=== PATIENT | female | born 1930 | race Caucasian/White ===

== ENCOUNTER → 2017-03-11 | Outpatient (CLI) | payer OTHER, BC ==
[~2017-03-11] MED LIST: AMLO10TA2 PO; ASPI81TA28 PO; ATOR-24 PO; DTRSR4 PO; FENO145T26 PO; IMDSR60 PO; ISOS60TA25 PO; LEVO25TA5 PO; LISI-725 PO; METO50TA16 PO; METO50TA17 PO; NTRGSL/4 UT; PANT40TA PO; VALS40TA2 PO
[2017-03-11 17:37] LABS: BASO % 0.2 %; BASO ABS # 0.01 K/uL (0-0.2); COMPLETE YES; EOS % 4.5 %; IG% 0.2 %; LYMPH % 28.4 %; LYMPH ABS # 1.72 K/uL (1.2-3.4); MEAN CELL VOLUME 88.9 fL (80-100); MEAN CORPUSCULAR HEMOGLOBIN 29.1 pg (25-34); MEAN CORPUSCULAR HGB CONC 32.8 g/dl (32-36); MEAN PLATELET VOLUME 10.4 fL (7.4-10.4); MONO % 7.8 %; NEUT % 58.9 %; PLATELET COUNT 244 K/uL (130-400); RED BLOOD COUNT 4.05 M/uL (4.2-5.4); WHITE BLOOD COUNT 6.05 K/uL (4.8-10.8)
[2017-03-11 17:50] LABS: ALT/SGPT 22 U/L (12-78); BLOOD UREA NITROGEN 27 mg/dl (7-18); BUN/CREATININE RATIO 27.2 (10-20); CARBON DIOXIDE 23 mmol/L (21-32); CHLORIDE 115 mmol/L (98-107); CHOLESTEROL 114 mg/dl (0-200); GLUCOSE 103 mg/dl (70-99); SODIUM 145 mmol/L (136-145)
[2017-03-11 18:00] LABS: ALB/GLOB RATIO 1.2 (0.9-2); ALKALINE PHOSPHATASE 53 U/L (45-117); AST/SGOT 24 U/L (15-37); CHOLESTEROL/HDL RATIO 2.9; HDL CHOLESTEROL 39 mg/dl; LDL CHOLESTEROL CALCULATED 44 mg/dl; TRIGLYCERIDES 154 mg/dl (0-150); VERY LOW DENSITY LIPOPROT CALC 31 mg/dl
[2017-03-12 06:20] LABS: ESTIMATED AVERAGE GLUCOSE 123 mg/dl; HA1C FLAG Normal (Normal)
== END | disposition home or self-care (01) ==
LOC: C.LABBFT 15:12
PROVIDERS: ATTEND Physician Assistant Medical
DX: E03.9 Hypothyroidism, unspecified (principal); R73.01 Impaired fasting glucose

== ENCOUNTER → 2017-04-01 | Outpatient (CLI) | payer OTHER, BC ==
--- NOTE | 2017-04-01 13:14 | DIAGNOSTIC IMAGING REPORT ---
VIDEO SWALLOW HISTORY: Dysphagia DYSPHAGIA TECHNIQUE: Video fluoroscopic evaluation of swallowing was performed in the AP and lateral projections by the speech pathology staff. The patient is fed nectar-thick and thin liquid barium, a barium coated wafer, and barium pudding. FLUOROSCOPY TIME: 3 minutes 20 seconds. COMPARISON STUDY: None. FINDINGS: There is normal hyoid excursion and epiglottic deflection. No significant penetration or aspiration identified. Swallowing function is within normal limits. Mild esophageal dysmotility IMPRESSION: 1. No aspiration identified. Mild esophageal dysmotility 2. Please see the speech pathologist report for detailed findings and recommendations. Electronically signed by: Christopher Hutchinson M.D. 04/01/2017 1:13 PM Dictated Date/Time: 04/01/2017 1:12 PM
--- NOTE | 2017-04-01 17:16 | SWALLOWING EVALUATION ---
REFERRING SPEECH PATHOLOGIST: n/a HISTORY: This 86 year-old female was referred for a VFSS at [facility] in order to address c/o solid food dysphagia, regurgitation, and belching. The patient has a PMH significant for cervical fusion C5-7, hypertension, GERD, hypothyroidism, breast CA s/p (L) mastectomy, and dyslipidemia. She had no previous VFSS, Barium Swallow Study, or Upper GI Series completed at [facility]. Currently the patient's diet level is regular. PROCEDURE: The patient was seen in the Radiology Department of [facility] for the VFSS. Cursory examination of the oral cavity revealed adequate dentition. Movement of the articulators was WNL. The patient was seated upright in a wheelchair and was viewed in both the Anterior-Posterior (A-P) and Lateral planes. Volitional phonation exercises completed in the A-P plane revealed bilateral vocal fold movement and vocal intensity within functional limits. In the lateral plane, the patient was given the following boluses: 1 tsp. thin liquid barium x 2, single swallow thin liquid barium self-presented from a cup, sequential swallows of thin liquid barium self-presented from a cup, 1 tsp. nectar-thick liquid barium, single swallow nectar-thick liquid barium self-presented from a cup, 1 tsp. barium pudding, and 1 club cracker with barium pudding. The patient was then repositioned into the A-P plane and given 1 tsp. barium pudding. RESULTS: Oral Stage: Labial seal, oral bolus hold, oral bolus preparation, oral bolus transport, oral clearance were all WFL. Pharyngeal swallow initiation was latent occurring when the bolus head was in the pyriform sinuses. Pharyngeal Stage: Velar elevation, laryngeal elevation, anterior hyoid excursion, epiglottic inversion, and laryngeal vestibular closure were all WFL. Pharyngeal stripping wave was diminished. Pharyngeal clearance was WFL. Distention and duration of PES opening were partial d/t presence of cricopharyngeal impression on the esophageal lumen. Tongue base retraction was WFL and there was no pharyngeal bolus residue after the swallow. There was no penetration or aspiration during this study. The patient demonstrated a normal pharyngeal swallow. Esophageal Stage: There was mild dysmotility throughout the esophagus as a pudding bolus transited the esophagus. SUMMARY/RECOMMENDATIONS: This patient presents with normal oral-pharyngeal swallow mechanics, but has s/s esophageal dysfunction. The following is recommended: 1. SLIPPERY DIET: information provided to patient as a written handout 2. Compensatory Strategies: GERD precautions; alternate solids and liquids during meals; stay upright 30 minutes after oral intake; 3. Consideration of completion of Barium Swallow Study if patient complaints persist AND if the patient is able to stand for the study. A summary of the results and recommendations was discussed with the patient immediately following the study and she was given information in writing to take home. She anticipates f/u with the referring physician. Thank you for referral of this patient. Please contact me at if any additional information is needed.
== END | disposition home or self-care (01) ==
LOC: C.RAD 11:11
PROVIDERS: ATTEND Nurse Practitioner
DX: R13.10 Dysphagia, unspecified (principal)

== ENCOUNTER 2017-06-07 18:48 | Emergency (ER) | payer OTHER, BC ==
[~2017-06-07] VITALS: Ht 152.4 cm; Wt 54.7 kg
[~2017-06-07 18:48] MED LIST changes: -ISOS60TA25 PO; -METO50TA16 PO; -VALS40TA2 PO
[2017-06-07 19:01] VITALS: TEMP 36.7; Ht 152.4 cm; Wt 54.7 kg
[2017-06-07] MEDS ORDERED: SODIUM CHLORIDE 0.9% 500ML 500 ML IV STA (19:08)
[2017-06-07] MEDS ORDERED: NITROGLYCERIN OINT 2% 1GM PACKET EXT STA (19:08)
[2017-06-07] MEDS ORDERED: METOCLOPRAMIDE HCL INJ 5 MG/ML 2 ML VIAL IV STA (19:08)
[2017-06-07] MEDS ORDERED: NITROGLYCERIN OINT 2% 1GM PACKET ONE (19:17)
[2017-06-07] MEDS ORDERED: GLUCAGON INJ 1 MG in SYRINGE 0 ML IV ONE (19:30)
[2017-06-07 19:46] LABS: BASO % 0.2 %; BASO ABS # 0.01 K/uL (0-0.2); COMPLETE YES; EOS % 3.9 %; HEMATOCRIT 37.2 % (37-47); IG% 0.2 %; LYMPH % 23.6 %; LYMPH ABS # 1.39 K/uL (1.2-3.4); MEAN CELL VOLUME 86.1 fL (80-100); MEAN CORPUSCULAR HEMOGLOBIN 28.9 pg (25-34); MEAN CORPUSCULAR HGB CONC 33.6 g/dl (32-36); MEAN PLATELET VOLUME 10.1 fL (7.4-10.4); MONO % 9.7 %; NEUT % 62.4 %; PLATELET COUNT 232 K/uL (130-400); RED BLOOD COUNT 4.32 M/uL (4.2-5.4); WHITE BLOOD COUNT 5.89 K/uL (4.8-10.8)
[2017-06-07] MEDS ORDERED: ISOS60TA25 PO (19:51)
[2017-06-07] MEDS ORDERED: VALS40TA2 PO (19:51)
[2017-06-07] MEDS ORDERED: METO50TA16 PO (19:53)
--- NOTE | 2017-06-07 19:56 | EMERGENCY ROOM VISIT NOTE ---
History Report prepared by Leodan: Nubia Stewart Under the Supervision of: Dr. Bay Ngo M.D. First contact with patient: 19:08 Chief Complaint: FOOD BOLUS Stated Complaint: CANT SWALLOW,THROWING UP MUCOUS History of Present Illness The patient is an 87 year old female who presents to the Emergency Room with complaints of a persistent food bolus that began around 0200. The patient states that she cannot swallow her own saliva. She states that she has had similar episodes over the past year intermittently. The patient states that she has been referred to a coach operator at [facility] and has been found to have a narrowing of her esophagus. She states that she was supposed to have her esophagus stretched. The patient denies any abdominal pain. She reports a history of hypertension. Source of History: patient Onset: 0200 Position: other (global) Quality: other (food bolus) Timing: other (persistent) Associated Symptoms: No abdominal pain Note: Associated symptoms: Cannot swallow own saliva Review of Systems See HPI for pertinent positives & negatives. A total of 10 systems reviewed and were otherwise negative. Past Medical & Surgical Medical Problems: (1) Chest pain (2) HTN (hypertension) (3) Hx of multiple strokes (4) Osteoarthritis (5) SALMONELLA COLITIS Family History Patient reports no known family medical history. Social History Smoking Status: Never Smoker Alcohol Use: none Drug Use: none Marital Status: Housing Status: lives with significant other Occupation Status: retired Current/Historical Medications Scheduled Amlodipine Besylate (Norvasc), 10 MG PO DAILY Aspirin (Aspirin Ec), 81 MG PO DAILY Atorvastatin (Lipitor), 40 MG PO HS Fenofibrate (Tricor ), 145 MG PO DAILY Isosorbide Mononitrate Ext Rel (Imdur Ext Rel), 60 MG PO BID Levothyroxine Sodium (Levothyroxine Sodium), 25 MCG PO DAILY Lisinopril (Zestril), 20 MG PO DAILY Metoprolol Tartrate (Lopressor) (Lopressor), 50 MG PO BID Nitroglycerin (Nitrostat), 0.4 MG UT PRN Pantoprazole (Protonix), 40 MG PO QAM Tolterodine Tartrate (Detrol LA), 4 MG PO HS Valsartan (Diovan), 1 TAB PO DAILY Allergies Coded Allergies: No Known Allergies (Verified , 08/16/16) Physical Exam Vital Signs Date Time Temp Pulse Resp B/P (MAP) Pulse Ox O2 Delivery O2 Flow Rate FiO2 06/07/17 21:16 67 20 158/79 98 06/07/17 19:01 36.7 62 18 179/68 96 Room Air Physical Exam GENERAL: Patient is a healthy-appearing well-nourished female with a bucket beside her filled with her own saliva. HEAD: Normocephalic atraumatic EYES: Ocular movements intact pupils equal and react to light OROPHARYNX mucous membranes are moist no exudates present no erythema or edema present NECK: Supple no nuchal rigidity CHEST: Good equal expansion LUNGS: Clear and equal to auscultation CARDIAC: Normal S1 and S2 ABDOMEN: Soft nontender no guarding BACK: No CVA tenderness EXTREMITIES: No pain upon palpation normal muscle strength in all groups no clubbing cyanosis or edema NEURO: Patient is following commands and answering questions appropriately. Alert and oriented x3 Cranial Nerves 2-12 grossly intact Medical Decision & Procedures Laboratory Results 06/07/17 19:25 Red Blood Count 4.32, Mean Corpuscular Volume 86.1, Mean Corpuscular Hemoglobin 28.9, Mean Corpuscular Hemoglobin Concent 33.6, Mean Platelet Volume 10.1, Neutrophils (%) (Auto) 62.4, Lymphocytes (%) (Auto) 23.6, Monocytes (%) (Auto) 9.7, Eosinophils (%) (Auto) 3.9, Basophils (%) (Auto) 0.2, Neutrophils # (Auto) 3.68, Lymphocytes # (Auto) 1.39, Monocytes # (Auto) 0.57, Eosinophils # (Auto) 0.23, Basophils # (Auto) 0.01 06/07/17 19:25 Test 06/07/17 19:25 White Blood Count 5.89 K/uL (4.8-10.8) Red Blood Count 4.32 M/uL (4.2-5.4) Hemoglobin 12.5 g/dL (12.0-16.0) Hematocrit 37.2 % (37-47) Mean Corpuscular Volume 86.1 fL (80-100) Mean Corpuscular Hemoglobin 28.9 pg (25-34) Mean Corpuscular Hemoglobin Concent 33.6 g/dl (32-36) Platelet Count 232 K/uL (130-400) Mean Platelet Volume 10.1 fL (7.4-10.4) Neutrophils (%) (Auto) 62.4 % Lymphocytes (%) (Auto) 23.6 % Monocytes (%) (Auto) 9.7 % Eosinophils (%) (Auto) 3.9 % Basophils (%) (Auto) 0.2 % Neutrophils # (Auto) 3.68 K/uL (1.4-6.5) Lymphocytes # (Auto) 1.39 K/uL (1.2-3.4) Monocytes # (Auto) 0.57 K/uL (0.11-0.59) Eosinophils # (Auto) 0.23 K/uL (0-0.5) Basophils # (Auto) 0.01 K/uL (0-0.2) RDW Standard Deviation 42.8 fL (36.4-46.3) RDW Coefficient of Variation 13.6 % (11.5-14.5) Immature Granulocyte % (Auto) 0.2 % Immature Granulocyte # (Auto) 0.01 K/uL (0.00-0.02) Anion Gap 10.0 mmol/L (3-11) Est Creatinine Clear Calc Drug Dose 30.8 ml/min Estimated GFR () 58.7 Estimated GFR (Non- 50.6 BUN/Creatinine Ratio 22.7 (10-20) Calcium Level 9.1 mg/dl (8.5-10.1) Total Bilirubin 0.5 mg/dl (0.2-1) Direct Bilirubin 0.1 mg/dl (0-0.2) Aspartate Amino Transf (AST/SGOT) 31 U/L (15-37) Alanine Aminotransferase (ALT/SGPT) 27 U/L (12-78) Alkaline Phosphatase 55 U/L (45-117) Total Protein 7.1 gm/dl (6.4-8.2) Albumin 3.8 gm/dl (3.4-5.0) Lipase 96 U/L (73-393) Labs reviewed by ED physician. Medications Administered Medications (Trade) Dose Ordered Sig/Vega Route Start Time Stop Time Status Last Admin Dose Admin Sodium Chloride 500 ml @ 999 mls/hr Q31M STAT IV 06/07/17 19:08 06/07/17 19:38 DC 06/07/17 19:39 999 MLS/HR Nitroglycerin (Nitroglycerin 2% Oint) 1 inch NOW STAT EXT 06/07/17 19:08 06/07/17 19:11 DC 06/07/17 19:36 1 INCH Metoclopramide HCl (Reglan Inj) 10 mg NOW STAT IV 06/07/17 19:08 06/07/17 19:11 DC 06/07/17 19:35 10 MG Glucagon 1 mg/ Syringe 1 ml @ 1 mls/min TODAY@1930 ONCE IV 06/07/17 19:30 06/07/17 19:31 DC 06/07/17 19:35 1 MLS/MIN Metoprolol Tartrate (Lopressor Tab) 50 mg NOW STAT PO 06/07/17 20:11 06/07/17 20:12 DC 06/07/17 20:11 50 MG ED Course 1907: Ordered Reglan Inj 10 mg IV, Nitroglycerin 1 inch ext. 1909: Past medical records reviewed. The patient was evaluated in room C9. A complete history and physical examination was performed by Dr. Rojas, Thread Cutter Tender. 1929: Ordered Glucagon 1 mg/Syringe 1 ml @ 1 mls/min IV. 1934: Past medical records reviewed. The patient was evaluated in room C9. A complete history and physical examination was performed. 1947: Dr. Rojas, Thread Cutter Tender spoke to Dr. Ruelas, Gastroenterology regarding the patient. He states that the patient should be evaluated for further treatment and they will see her tomorrow. He states that the patient should be NPO given fluids and started on a PPI. 1953: I reevaluated the patient and she has not spit up her saliva since the medication. She will be given a small sip of water. 2010: Ordered Lopressor Tab 50 mg PO. 2040: The resident reevaluated the patient and she kept her medication down without problem. He discussed all the exam findings with her and he discussed the treatment plan. The patient verbalized complete understanding and agreement. She is ready to go home. Medical Decision The patient is an 87 year old female who presents to the ED with complaints of a food bolus. Differential diagnosis include esophageal stricture, esophageal foreign body, esophageal spasm, esophagitis, dysphagia. Medication Reconciliation: I attest that I have personally reviewed the patient' s current medication list Blood Pressure Screening: Patient was found to have an elevated blood pressure and was referred to their primary care doctor for recheck and further treatment This is an 87-year-old female that presents emergency department unable to swallow her saliva. An IV was established, patient given glucagon, Reglan, Valium, nitroglycerin. Repeat examination revealed much improvement the patient 's symptoms. The patient was able tolerate glass of water along with her own medications. Based on this I feel the patient can go home. Resident Physician Supervision Note: I interviewed and examined the patient. Discussed with Dr. Rojas and agree with findings and plan as documented in the note. Documented By: Bay Ngo Consults Time Called: 1929 Consulting Physician: Dr. Ruelas, Gastroenterology Returned Call: 1947 Dr. Rojas, Thread Cutter Tender spoke to Dr. Ruelas, Gastroenterology regarding the patient. He states that the patient should be evaluated for further treatment and they will see her tomorrow. He states that the patient should be NPO given fluids and started on a PPI. Impression Primary Impression: Dysphagia Scribe Attestation The scribe's documentation has been prepared under my direction and personally reviewed by me in its entirety. I confirm that the note above accurately reflects all work, treatment, procedures, and medical decision making performed by me. Departure Information Dispostion Home / Self-Care Referrals Dante De La Cruz M.D. (PCP) Forms HOME CARE DOCUMENTATION FORM, IMPORTANT VISIT INFORMATION, WORK / SCHOOL INSTRUCTIONS Patient Instructions My [facility] Additional Instructions -Please drink Clear fluids for the next 48 hrs -Follow up with Brandi GI specialist at [facility] within 1 wk -Follow up with JAIME call 1-2 wks Problem Qualifiers Primary Impression: Dysphagia Dysphagia type: unspecified Qualified Codes: R13.10 - Dysphagia, unspecified
[2017-06-07 20:05] LABS: BUN/CREATININE RATIO 22.7 (10-20); CALCIUM 9.1 mg/dl (8.5-10.1); POTASSIUM 3.6 mmol/L (3.5-5.1)
[2017-06-07] MEDS ORDERED: METOPROLOL TARTRATE 50 MG TAB PO STA (20:11)
--- NOTE | 2017-06-07 20:23 | EMERGENCY ROOM VISIT NOTE ---
History First contact with patient: 19:09 Chief Complaint: FOOD BOLUS Stated Complaint: CANT SWALLOW,THROWING UP MUCOUS History of Present Illness The patient is a 87 year old female who presents to the Emergency Room with complaints of dysphagia and emesis following. Patient reports that since 2 AM this morning, she has had significant difficulty swallowing foods and regurgitating food content almost immediately following ingestion. Patient denies Fevers, chills, hematemesis, Abdominal pain, change in stool, BATEMAN. She has had previous similar symptoms for several months. She saw a GI specialist in [facility] who informed her and family that there was a narrowing in her esophagus that would require a dilation procedure, however patient never followed up went without having procedure. She denies Chest pain, cough. She reports one SOB but confirms this is her baseline., Review of Systems Pt denies headache, change in vision, fevers, chest pain, shortness of breath, diarrhea, pain with urination, and melena. Past Medical/Surgical History Medical Problems: (1) Chest pain (2) HTN (hypertension) (3) Hx of multiple strokes (4) Osteoarthritis (5) SALMONELLA COLITIS Family History Patient reports no known family medical history. Social History Smoking Status: Never Smoker Alcohol Use: none Drug Use: none Marital Status: Housing Status: lives with significant other Occupation Status: retired Current/Historical Medications Scheduled Amlodipine Besylate (Norvasc), 10 MG PO DAILY Aspirin (Aspirin Ec), 81 MG PO DAILY Atorvastatin (Lipitor), 40 MG PO HS Fenofibrate (Tricor ), 145 MG PO DAILY Isosorbide Mononitrate Ext Rel (Imdur Ext Rel), 60 MG PO BID Levothyroxine Sodium (Levothyroxine Sodium), 25 MCG PO DAILY Lisinopril (Zestril), 20 MG PO DAILY Metoprolol Tartrate (Lopressor) (Lopressor), 50 MG PO BID Nitroglycerin (Nitrostat), 0.4 MG UT PRN Pantoprazole (Protonix), 40 MG PO QAM Tolterodine Tartrate (Detrol LA), 4 MG PO HS Valsartan (Diovan), 1 TAB PO DAILY Allergies Coded Allergies: No Known Allergies (Verified , 08/16/16) Physical Exam Vital Signs Date Time Temp Pulse Resp B/P (MAP) Pulse Ox O2 Delivery O2 Flow Rate FiO2 06/07/17 19:01 36.7 62 18 179/68 96 Room Air Physical Exam GENERAL: alert, thin, no distress, non-toxic EYE EXAM: normal conjunctiva, PERRL and EOM's grossly intact OROPHARYNX: no exudate, no erythema, lips, buccal mucosa, and tongue normal and mucous membranes are moist NECK: supple, no nuchal rigidity, no adenopathy, non-tender LUNGS: Clear to auscultation. Normal chest wall mechanics HEART: no murmurs, S1 normal and S2 normal ABDOMEN: abdomen soft, non-tender, normo-active bowel sounds, no masses, no rebound or guarding. SKIN: no rashes and no bruising UPPER EXTREMITIES: upper extremities are grossly normal. LOWER EXTREMITIES: No pitting edema. NEURO EXAM: Normal sensorium, cranial nerves II-XII grossly intact, normal speech, no gross weakness of arms, no gross weakness of legs. Medical Decision & Procedures Laboratory Results 06/07/17 19:25 Red Blood Count 4.32, Mean Corpuscular Volume 86.1, Mean Corpuscular Hemoglobin 28.9, Mean Corpuscular Hemoglobin Concent 33.6, Mean Platelet Volume 10.1, Neutrophils (%) (Auto) 62.4, Lymphocytes (%) (Auto) 23.6, Monocytes (%) (Auto) 9.7, Eosinophils (%) (Auto) 3.9, Basophils (%) (Auto) 0.2, Neutrophils # (Auto) 3.68, Lymphocytes # (Auto) 1.39, Monocytes # (Auto) 0.57, Eosinophils # (Auto) 0.23, Basophils # (Auto) 0.01 06/07/17 19:25 Test 06/07/17 19:25 White Blood Count 5.89 K/uL (4.8-10.8) Red Blood Count 4.32 M/uL (4.2-5.4) Hemoglobin 12.5 g/dL (12.0-16.0) Hematocrit 37.2 % (37-47) Mean Corpuscular Volume 86.1 fL (80-100) Mean Corpuscular Hemoglobin 28.9 pg (25-34) Mean Corpuscular Hemoglobin Concent 33.6 g/dl (32-36) Platelet Count 232 K/uL (130-400) Mean Platelet Volume 10.1 fL (7.4-10.4) Neutrophils (%) (Auto) 62.4 % Lymphocytes (%) (Auto) 23.6 % Monocytes (%) (Auto) 9.7 % Eosinophils (%) (Auto) 3.9 % Basophils (%) (Auto) 0.2 % Neutrophils # (Auto) 3.68 K/uL (1.4-6.5) Lymphocytes # (Auto) 1.39 K/uL (1.2-3.4) Monocytes # (Auto) 0.57 K/uL (0.11-0.59) Eosinophils # (Auto) 0.23 K/uL (0-0.5) Basophils # (Auto) 0.01 K/uL (0-0.2) RDW Standard Deviation 42.8 fL (36.4-46.3) RDW Coefficient of Variation 13.6 % (11.5-14.5) Immature Granulocyte % (Auto) 0.2 % Immature Granulocyte # (Auto) 0.01 K/uL (0.00-0.02) Anion Gap 10.0 mmol/L (3-11) Est Creatinine Clear Calc Drug Dose 30.8 ml/min Estimated GFR () 58.7 Estimated GFR (Non- 50.6 BUN/Creatinine Ratio 22.7 (10-20) Calcium Level 9.1 mg/dl (8.5-10.1) Total Bilirubin 0.5 mg/dl (0.2-1) Direct Bilirubin 0.1 mg/dl (0-0.2) Aspartate Amino Transf (AST/SGOT) 31 U/L (15-37) Alanine Aminotransferase (ALT/SGPT) 27 U/L (12-78) Alkaline Phosphatase 55 U/L (45-117) Total Protein 7.1 gm/dl (6.4-8.2) Albumin 3.8 gm/dl (3.4-5.0) Lipase 96 U/L (73-393) Medications Administered Medications (Trade) Dose Ordered Sig/Vega Route Start Time Stop Time Status Last Admin Dose Admin Sodium Chloride 500 ml @ 999 mls/hr Q31M STAT IV 06/07/17 19:08 06/07/17 19:38 DC 06/07/17 19:39 999 MLS/HR Nitroglycerin (Nitroglycerin 2% Oint) 1 inch NOW STAT EXT 06/07/17 19:08 06/07/17 19:11 DC 06/07/17 19:36 1 INCH Metoclopramide HCl (Reglan Inj) 10 mg NOW STAT IV 06/07/17 19:08 06/07/17 19:11 DC 06/07/17 19:35 10 MG Glucagon 1 mg/ Syringe 1 ml @ 1 mls/min TODAY@1930 ONCE IV 06/07/17 19:30 06/07/17 19:31 DC 06/07/17 19:35 1 MLS/MIN Metoprolol Tartrate (Lopressor Tab) 50 mg NOW STAT PO 06/07/17 20:11 06/07/17 20:12 DC 06/07/17 20:11 50 MG Medical Decision This is 87 yo F with previous hx of esophageal dysmotility (confirmed on swallowing study 04/01/17), presenting with dysphagia and associated emesis with meals both solids and liquids, previously evaluated by GI at [facility] and lost to followup. Per patient, she had narrowing of esophagus and was informed she might need dilation of esophagus. - Given Glucagon - Given NG paste - Given Reglan - CBC unremarkable - BUN 23, Cr wnl, likely had some dehydration secondary to recurrent emesis -I discussed case with Dr. Guillory ( [facility], Gastroenterology) who advised admission with non-urgent evaluation the next day -On reevaluation of patient, she was comfortable and able to successfully drink fluids without emesis. -On further re-valuation, patient was able to take home medication (Metoprolol) without difficulty swallowing or emesis. It was later decided due to resolution of her symptoms that patient could be safely discharged home with outpatient follow up to [facility] Gastroenterology in addition to PCP She was given instructions to remain on clear liquids for the next 48 hrs Impression Primary Impression: Dysphagia Departure Information Dispostion Home / Self-Care Condition GOOD Referrals Dante De La Cruz M.D. (PCP) [facility] Instructions [facility]
[2017-06-07 21:16] VITALS: BP 158/79; PULSE 67; O2SAT 98
[2017-06-16] MEDS ORDERED: VALS40TA2 PO (08:24)
== END 2017-06-07 21:17 | disposition home or self-care (01) ==
LOC: C.EDB 18:50 → C.EDC 21:17
DX: R13.10 Dysphagia, unspecified (principal); K22.4 Dyskinesia of esophagus; K22.2 Esophageal obstruction; R11.10 Vomiting, unspecified; I10 Essential (primary) hypertension; M19.90 Unspecified osteoarthritis, unspecified site; Z86.73 Personal history of transient ischemic attack (TIA), and cerebral infarction without residual deficits; Z79.82 Long term (current) use of aspirin; Z79.899 Other long term (current) drug therapy

== ENCOUNTER → 2017-06-16 | Day surgery (SDC) | payer OTHER, BC ==
[2017-06-15 12:46] VITALS: BMI 23.0
[~2017-06-16] VITALS: Ht 152.4 cm; Wt 53.6 kg
[~2017-06-16] MED LIST changes: +EpHEDrine SULFATE 50MG/5ML SYR ONE; -IMDSR60 PO; +ISOS60TA25 PO; +LIDOCAINE HCL 2% 2 ML VIAL (20MG/ML) ONE; +METO50TA16 PO; -METO50TA17 PO; +PROPOFOL IV EMULSION 10 MG/ML 20 ML VIAL IV ONE; +SODIUM CHLORIDE 0.9% 500ML 500 ML IV ONE; +VALS40TA2 PO
[2017-06-16 10:58] VITALS: Ht 152.4 cm; Wt 53.6 kg
--- NOTE | 2017-06-16 11:41 | Endo History and Physical ---
History & Physical Date of Service: Jun 16, 2017. Chief Complaint: DYSPHAGIA Referring Physician: DR. VELÁZQUEZ History of Present Illness 87 yo with intermittent dysphagia Past Surgical History Hx Cardiac Surgery: No Hx Internal Defibrillator: No Hx Pacemaker: No Hx Abdominal Surgery: Yes (DEBI BSO, TUBAL LIGATION, HERNIA REPAIR) Hx of Implantable Prosthesis: No Hx Post-Op Nausea and Vomiting: No Hx Cancer Surgery: No Hx Thoracic Surgery: No Hx Orthopedic: Yes (NECK SURGERY (LIMITED LOOKING UP)) Hx Urinary Tract Surgery: No Family History None Social History Smoking Status: Never Smoker Hx Substance Use: No Hx Alcohol Use: No Allergies Coded Allergies: No Known Allergies (Verified , 06/16/17) Current Medications Reported Home Medications Medications Dose Route/Sig Max Daily Dose Days Date Category Dose Instructions Diovan (Valsartan) 40 Mg Tab 40 Mg PO QAM 06/16/17 Reported Lopressor (Metoprolol Tartrate) 50 Mg Tab 50 Mg PO BID 06/07/17 Reported Imdur Ext Rel (Isosorbide Mononitrate) 60 Mg Ertab 60 Mg PO BID 06/07/17 Reported 1 TAB AM 1 TAB NOON Nitrostat (Nitroglycerin) 0.4 Mg Tab 0.4 Mg UT PRN 06/12/[address] 1 TAB UNDER TONGUE EVERY 5MIN UP TO 3 DOSES NEEDED FOR CHEST PAIN.CALL 911 IF PAIN PERSISTS Protonix (Pantoprazole Sodium) 40 Mg Tab 40 Mg PO QAM 06/12/16 Reported TAKE 30 MIN BEFORE BREAKFAST Detrol LA (Tolterodine Tartrate) 4 Mg Capcr 4 Mg PO HS 06/12/16 Reported Levothyroxine Sodium 25 Mcg Tab 25 Mcg PO QAM 06/12/16 Reported Lipitor (Atorvastatin Calcium) 40 Mg Tab 40 Mg PO HS 06/12/16 Reported Norvasc (Amlodipine Besylate) 10 Mg Tab 10 Mg PO QAM 06/12/16 Reported Aspirin Ec (Aspirin) 81 Mg Tab 81 Mg PO QAM 10/29/15 Reported Tricor (Fenofibrate) 145 Mg Tab 145 Mg PO QAM 08/04/10 Reported Vital Signs Weight (Kilograms): 53.64 Height (Feet): 5 Height (Inches): 0 Date Time Temp Pulse Resp B/P (MAP) Pulse Ox O2 Delivery O2 Flow Rate FiO2 06/16/17 11:13 36.4 58 22 174/74 (107) 98 Room Air Physical Exam General Appearance: WD/WN, no apparent distress Respiratory/Chest: Respiratory effort: no dyspnea Auscultation: breath sounds normal, CTA except as noted, no wheezing Cardiovascular: Apical Impulse: not displaced Heart Auscultation: RRR, normal S1, normal S2 Abdomen: Bowel Sounds: normal Inspection & Palpation: soft, non-distended Assessment and Plan 87 yo presenting for EGD for dysphagia and GERD
[2017-06-16 12:29] VITALS: BP 153/56; PULSE 55; O2SAT 97
--- NOTE | 2017-06-16 12:30 | GI REPORT ---
Procedure Date: 06/16/2017 11:33 AM Procedure: Upper GI endoscopy Indications: Dysphagia Medicines: General Anesthesia Complications: No immediate complications. Estimated blood loss: None. Estimated Blood Loss: Estimated blood loss: none. Procedure: Pre-Anesthesia Assessment: - Pre-Anesthesia Assessment: - Prior to the procedure, a History and Physical was performed, and patient medications, allergies and sensitivities were reviewed. The patient's tolerance of previous anesthesia was reviewed. Please see [facility] for complete details. - The risks and benefits of the procedure and the sedation options and risks were discussed with the patient. All questions were answered and informed consent was obtained. - Patient identification and proposed procedure were verified prior to the procedure by the physician and the nurse. The procedure was verified in the pre-procedure area in the procedure room. After obtaining informed consent, the endoscope was passed carefully and meticuously under direct vision and only advanced when the lumen was clearly identified, C02 insuflation was utilized throughout the entirity of the procedure. Throughout the procedure, the patient's blood pressure, pulse, and oxygen saturations were monitored continuously. After obtaining informed consent, the endoscope was passed under direct vision. Throughout the procedure, the patient's blood pressure, pulse, and oxygen saturations were monitored continuously. The scope was introduced through the mouth, and advanced to the second part of duodenum. The upper GI endoscopy was accomplished without difficulty. The patient tolerated the procedure well. Findings: A large hiatus hernia was found. A moderate Schatzki ring (acquired) was found at the gastroesophageal junction. A TTS dilator was passed through the scope. Dilation with a 12-13.5-15 mm balloon (to a maximum balloon size of 15 mm) dilator was performed. The dilation site was examined and showed appropriate response with mild mucosal disruption without complication. The entire examined stomach was normal. The examined duodenum was normal. Impression: - Large hiatus hernia. - Moderate Schatzki ring. Dilated. - Normal stomach. - Normal examined duodenum. - No specimens collected. Recommendation: - Discharge patient to home. - If has daily GERD consider Prilosec daily. Ovi Cruz MD 06/16/2017 12:29:40 PM This report has been signed electronically. Note Initiated On: 06/16/2017 11:33 AM I attest to the content of the Intraoperative Record and orders documented therein, exceptions below
--- NOTE | 2017-06-16 12:31 | Discharge Instructions ---
Endoscopy Patient Instructions Date / Procedure(s) Performed Jun 16, 2017. EGD Allergy Information Coded Allergies: No Known Allergies (Verified , 06/16/17) Discharge Date / Findings Jun 16, 2017. - Large hiatus hernia. - Moderate Schatzki ring. Dilated. - Normal stomach. - Normal examined duodenum. - No specimens collected. Provider Instructions Activity Restrictions - No exercising or heavy lifting for 24 hours. - Do not drink alcohol the day of the procedure. - Do not drive a car or operate machinery until the day after the procedure. - Do not make any important decisions or sign important papers in 24 hours after the procedure. Following Day: - Return to full activity which may include returning to work/school. Diet Start your diet with liquids and light foods (jello, soup, juice, toast). Then eat your usual diet if not nauseated. Treatment For Common After Affects For mild abdominal pain, bloating, or excessive gas: - Rest - Eat lightly - Lie on right side Follow-Up Information Follow-up with DR. VELÁZQUEZ as scheduled Anesthesia Information What You Should Know You have had a procedure that required some medicine to reduce anxiety and discomfort. This treatment is called moderate sedation. After receiving the treatment, you may be sleepy, but you will be able to breathe on your own. The effects of the treatment may last for several hours. Follow these instructions along with Activity/Diet recommendations noted above: * Do NOT do anything where dizziness or clumsiness would be dangerous. * Rest quietly at home today, then you can be up and about tomorrow. * Have a responsible person stay with you the rest of today. * You may have had an I.V. today. If so, you may take the dressing off later today. Recommendations Call your doctor if: * Trouble breathing * Continuous vomiting for more than 24 hours * Temperature above 101 degrees * Severe abdominal pain or bloating * Pain not relieved by pain medicine ordered * There is increased drainage or redness from any incision * A large amount of rectal bleeding greater than 2-3 tablespoons. (If you had a polyp/s removed or have hemorrhoids, a small amount of blood - from the rectum is to be expected.) * You have any unanswered questions or concerns. IN THE EVENT OF A SERIOUS EMERGENCY, GO TO THE NEAREST EMERGENCY ROOM Your discharge instructions were prepared by provider Ovi Cruz. Patient Instructions Signature Page Tiffanei Harrell Patient (or Guardian) Signature/Date: I have read and understand the instructions given to me by my caregivers. Caregiver/RN/Doctor Signature/Date: The above-named patient and/or guardian has received patient instructions on this date. + Original Patient Signature Page (only) stays with chart. Please make copy for patient.
--- NOTE | 2017-06-16 12:38 | Anesthesiology Progress Note ---
Anesthesia Post Op Note Date & Time Jun 16, 2017 at 12:38 Vital Signs Pain Intensity: 0 Vital Signs Past 12 Hours Date Time Temp Pulse Resp B/P (MAP) Pulse Ox O2 Delivery O2 Flow Rate FiO2 06/16/17 12:29 55 18 153/56 (88) 97 Room Air 06/16/17 12:19 57 18 157/56 (89) 96 Room Air 06/16/17 12:11 36.4 58 18 157/52 (87) 99 Room Air 06/16/17 11:13 36.4 58 22 174/74 (107) 98 Room Air Notes Mental Status: alert / awake / arousable, participated in evaluation Pt Amnestic to Procedure: Yes Nausea / Vomiting: adequately controlled Pain: adequately controlled Airway Patency, RR, SpO2: stable & adequate BP & HR: stable & adequate Hydration State: stable & adequate Anesthetic Complications: no major complications apparent
== END | disposition home or self-care (01) ==
LOC: C.GI 10:26
PROVIDERS: ATTEND Internal Medicine
DX: K22.2 Esophageal obstruction (principal); K44.9 Diaphragmatic hernia without obstruction or gangrene; Z79.82 Long term (current) use of aspirin; Z79.899 Other long term (current) drug therapy

== ENCOUNTER → 2018-03-10 | Outpatient (CLI) | payer OTHER, BC ==
[~2018-03-10] MED LIST changes: +AMOX875T PO; -EpHEDrine SULFATE 50MG/5ML SYR ONE; -LIDOCAINE HCL 2% 2 ML VIAL (20MG/ML) ONE; -LISI-725 PO; +ONDA4TAB10 SL; -PROPOFOL IV EMULSION 10 MG/ML 20 ML VIAL IV ONE; -SODIUM CHLORIDE 0.9% 500ML 500 ML IV ONE
[2018-03-10 17:47] LABS: BASO % 0.2 %; BASO ABS # 0.01 K/uL (0-0.2); EOS % 5.4 %; EOS ABS # 0.33 K/uL (0-0.5); HEMATOCRIT 35.8 % (37-47); HEMOGLOBIN 11.8 g/dL (12.0-16.0); IG# 0.01 K/uL (0.00-0.02); LYMPH % 32.2 %; LYMPH ABS # 1.95 K/uL (1.2-3.4); MEAN CELL VOLUME 88.8 fL (80-100); MEAN CORPUSCULAR HEMOGLOBIN 29.3 pg (25-34); MEAN PLATELET VOLUME 10.3 fL (7.4-10.4); MONO % 8.3 %; NEUT % 53.7 %; NEUT ABS # 3.26 K/uL (1.4-6.5); PLATELET COUNT 303 K/uL (130-400); RED CELL DISTRIBUTION WIDTH CV 13.7 % (11.5-14.5); RED CELL DISTRIBUTION WIDTH SD 44.9 fL (36.4-46.3); WHITE BLOOD COUNT 6.06 K/uL (4.8-10.8)
[2018-03-10 18:23] LABS: ALBUMIN 3.3 gm/dl (3.4-5.0); ALT/SGPT 16 U/L (12-78); AST/SGOT 17 U/L (15-37); BLOOD UREA NITROGEN 25 mg/dl (7-18); CALCIUM 8.7 mg/dl (8.5-10.1); CARBON DIOXIDE 23 mmol/L (21-32); CREATININE 1.11 mg/dl (0.60-1.20); GLUCOSE 94 mg/dl (70-99); POTASSIUM 4.2 mmol/L (3.5-5.1); SODIUM 143 mmol/L (136-145)
[2018-03-10 18:32] LABS: ALKALINE PHOSPHATASE 67 U/L (45-117); CHOLESTEROL 97 mg/dl (0-200); LDL CHOLESTEROL CALCULATED 39 mg/dl
[2018-03-11 06:20] LABS: HEMOGLOBIN A1C 5.9 % (4.5-5.6)
== END | disposition home or self-care (01) ==
LOC: C.LABBFT 13:53
PROVIDERS: ATTEND Internal Medicine
DX: R32 Unspecified urinary incontinence (principal); E03.9 Hypothyroidism, unspecified; R30.0 Dysuria; I25.10 Atherosclerotic heart disease of native coronary artery without angina pectoris; E78.00 Pure hypercholesterolemia, unspecified; R73.01 Impaired fasting glucose

== ENCOUNTER 2018-03-19 06:12 | Emergency (ER) | payer BC, OTHER ==
[~2018-03-19] VITALS: Ht 152.4 cm; Wt 52.3 kg
[~2018-03-19 06:12] MED LIST changes: -AMOX875T PO; -ONDA4TAB10 SL
[2018-03-19 06:18] VITALS: TEMP 36.6; Ht 152.4 cm; Wt 52.3 kg
[2018-03-19] MEDS ORDERED: SODIUM CHLORIDE 0.9% 1000ML 1,000 ML IV STA (06:43)
[2018-03-19 07:17] LABS: BASO % 0.1 %; BASO ABS # 0.01 K/uL (0-0.2); EOS % 1.1 %; HEMATOCRIT 37.2 % (37-47); HEMOGLOBIN 12.6 g/dL (12.0-16.0); IG# 0.01 K/uL (0.00-0.02); LYMPH % 14.3 %; LYMPH ABS # 1.31 K/uL (1.2-3.4); MEAN CELL VOLUME 87.7 fL (80-100); MEAN CORPUSCULAR HEMOGLOBIN 29.7 pg (25-34); MEAN CORPUSCULAR HGB CONC 33.9 g/dl (32-36); MEAN PLATELET VOLUME 9.8 fL (7.4-10.4); MONO % 5.1 %; MONO ABS # 0.47 K/uL (0.11-0.59); NEUT % 79.3 %; NEUT ABS # 7.25 K/uL (1.4-6.5); PLATELET COUNT 281 K/uL (130-400); RED CELL DISTRIBUTION WIDTH CV 14.2 % (11.5-14.5); RED CELL DISTRIBUTION WIDTH SD 45.8 fL (36.4-46.3); WHITE BLOOD COUNT 9.15 K/uL (4.8-10.8)
--- NOTE | 2018-03-19 07:17 | EMERGENCY ROOM VISIT NOTE ---
History Report prepared by Leodan: Miguel Beth Under the Supervision of: Dr. Jose Alejandro Montelongo M.D. First contact with patient: 06:39 Chief Complaint: ABDOMINAL PAIN Stated Complaint: SEVERE ABDOMINAL PAIN - BLEEDING History of Present Illness The patient is a 87 year old female who presents to the Emergency Room with complaints of intermittent lower abdominal pain that began yesterday. Patient describes the pain as sharp. Patient states that she does not have pain currently in the ER, but states her lower abdomen is uncomfortable. Patient states that she took a laxative yesterday to relieve her symptoms, but it did not help. She states that she had bloody stool following the use of the laxative. Patient adds that she vomited a couple times but nothing came up. She adds that she has intermittent nausea. She states that she had motion sickness in the car coming to the hospital. Patient states that she has not eaten since yesterday at noon. She denies a history of similar symptoms. She denies any recent diarrhea. Pertinent past surgical history includes a hysterectomy. Past medical history includes arthritis in her back. Patient denies being around anyone else that is sick. Patient states that her family doctor is Dr. De La Cruz. Pt denies LOC, headache, fevers, chills, diaphoresis, visual changes, neck pain , chest pain, breathing difficulties, nausea, back pain, melena, urinary symptoms, numbness, weakness, lymphadenopathy, rash, or other complaints. Source of History: patient Onset: Yesterday Position: abdomen (Lower) Quality: sharp Timing: intermittent Associated Symptoms: + nausea, + vomiting, + hematochezia Review of Systems See HPI for pertinent positives and negatives. A total of ten systems were reviewed and were otherwise negative. Past Medical & Surgical Medical Problems: (1) Chest pain (2) HTN (hypertension) (3) Hx of multiple strokes (4) Osteoarthritis (5) SALMONELLA COLITIS Family History Cancer FHx: heart disease High blood pressure Social History Smoking Status: Never Smoker Marital Status: Current/Historical Medications Scheduled Amlodipine Besylate (Norvasc), 10 MG PO QAM Amoxicillin & Pot Clavulanate (Augmentin 875-125 mg), 875 MG PO BID Aspirin (Aspirin Ec), 81 MG PO QAM Atorvastatin (Lipitor), 40 MG PO HS Fenofibrate (Tricor ), 145 MG PO QAM Isosorbide Mononitrate Ext Rel (Imdur Ext Rel), 60 MG PO BID Levothyroxine Sodium (Levothyroxine Sodium), 25 MCG PO QAM Metoprolol Tartrate (Lopressor) (Lopressor), 50 MG PO BID Nitroglycerin (Nitrostat), 0.4 MG UT PRN Ondasetron Odt (Zofran Odt), 4 MG SL Q6H Pantoprazole (Protonix), 40 MG PO QAM Tolterodine Tartrate (Detrol LA), 4 MG PO HS Valsartan (Diovan), 40 MG PO QAM Allergies Coded Allergies: No Known Allergies (Verified , 06/16/17) Physical Exam Vital Signs Date Time Temp Pulse Resp B/P (MAP) Pulse Ox O2 Delivery O2 Flow Rate FiO2 03/19/18 08:17 76 18 160/91 97 Room Air 03/19/18 07:53 71 20 141/57 96 03/19/18 07:43 75 03/19/18 06:18 36.6 76 18 152/78 96 Room Air Physical Exam GENERAL: Awake, alert, tired-appearing, in no distress HENT: Normocephalic, atraumatic. Oropharynx unremarkable. EYES: Normal conjunctiva. Sclera non-icteric. NECK: Supple. No nuchal rigidity. FROM. No masses. RESPIRATORY: Clear to auscultation. No wheezes. No rales. Normal respiratory effort. CARDIAC: Normal rate. Normal rhythm. No murmurs. No rubs. Extremities warm and well perfused. Pulses equal. No JVD. GI: Soft, non-distended. RLQ and LLQ tenderness to palpation. No rebound or guarding. No masses. RECTAL: Deferred. MUSCULOSKELETAL: Atraumatic. Chest examination reveals no tenderness. The back is symmetrical on inspection without obvious abnormality. There is no CVA tenderness to palpation. No joint edema. LOWER EXTREMITIES: Calves are equal size bilaterally and non-tender. No edema. No discoloration. NEURO: Normal sensorium. No sensory or motor deficits noted. SKIN: No rash or jaundice noted. Medical Decision & Procedures ER Provider Diagnostic Interpretation: ABD/PELVIS NO IV OR ORAL CONT CT DOSE: 394.24 mGy.cm HISTORY: Pain lower abd pain, vomiting, bloody stool TECHNIQUE: Multiaxial CT images of the abdomen and pelvis were performed without contrast. A dose lowering technique was utilized adhering to the principles of ALARA. COMPARISON STUDY: 08/29/2013. FINDINGS: Pre-existing left augmentation mammoplasty versus reconstructive mammoplasty. External hernia. Minimal bibasilar interstitial prominence. Liver spleen and pancreas appear unremarkable. No evidence for gallbladder distention. Kidneys are negative for calcification or hydronephrosis. The small bowel as well as colonic pattern appear unremarkable. The appendix is unremarkable. There are findings of significant wall thickening of the sigmoid colon. Chronic sigmoid diverticulosis is present, with a trace amount of free fluid within the low pelvic cul-de-sac. This may indicate a minimal degree of superimposed acute diverticulitis of the proximal sigmoid. There is no evidence for abscess or collection. Bladder is midline. IMPRESSION: 1. Extensive chronic sigmoid diverticulosis with a small component of acute diverticulitis superior to the rectosigmoid junction. 2. Trace amount of free fluid fluid within the pelvic cul-de-sac. 3. No evidence for abscess collection or obstruction. The above report was generated using voice recognition software. It may contain grammatical, syntax or spelling errors. Electronically signed by: Christopher Hutchinson M.D. 03/19/2018 7:34 AM Laboratory Results 03/19/18 07:05 Red Blood Count 4.24, Mean Corpuscular Volume 87.7, Mean Corpuscular Hemoglobin 29.7, Mean Corpuscular Hemoglobin Concent 33.9, Mean Platelet Volume 9.8, Neutrophils (%) (Auto) 79.3, Lymphocytes (%) (Auto) 14.3, Monocytes (%) (Auto) 5.1, Eosinophils (%) (Auto) 1.1, Basophils (%) (Auto) 0.1, Neutrophils # (Auto) 7.25, Lymphocytes # (Auto) 1.31, Monocytes # (Auto) 0.47, Eosinophils # (Auto) 0.10, Basophils # (Auto) 0.01 03/19/18 07:05 Test 03/19/18 07:05 White Blood Count 9.15 K/uL (4.8-10.8) Red Blood Count 4.24 M/uL (4.2-5.4) Hemoglobin 12.6 g/dL (12.0-16.0) Hematocrit 37.2 % (37-47) Mean Corpuscular Volume 87.7 fL (80-100) Mean Corpuscular Hemoglobin 29.7 pg (25-34) Mean Corpuscular Hemoglobin Concent 33.9 g/dl (32-36) Platelet Count 281 K/uL (130-400) Mean Platelet Volume 9.8 fL (7.4-10.4) Neutrophils (%) (Auto) 79.3 % Lymphocytes (%) (Auto) 14.3 % Monocytes (%) (Auto) 5.1 % Eosinophils (%) (Auto) 1.1 % Basophils (%) (Auto) 0.1 % Neutrophils # (Auto) 7.25 K/uL (1.4-6.5) Lymphocytes # (Auto) 1.31 K/uL (1.2-3.4) Monocytes # (Auto) 0.47 K/uL (0.11-0.59) Eosinophils # (Auto) 0.10 K/uL (0-0.5) Basophils # (Auto) 0.01 K/uL (0-0.2) RDW Standard Deviation 45.8 fL (36.4-46.3) RDW Coefficient of Variation 14.2 % (11.5-14.5) Immature Granulocyte % (Auto) 0.1 % Immature Granulocyte # (Auto) 0.01 K/uL (0.00-0.02) Anion Gap 7.0 mmol/L (3-11) Est Creatinine Clear Calc Drug Dose 17.1 ml/min Estimated GFR () 31.8 Estimated GFR (Non- 27.4 BUN/Creatinine Ratio 16.2 (10-20) Calcium Level 8.8 mg/dl (8.5-10.1) Total Bilirubin 0.6 mg/dl (0.2-1) Direct Bilirubin 0.2 mg/dl (0-0.2) Aspartate Amino Transf (AST/SGOT) 26 U/L (15-37) Alanine Aminotransferase (ALT/SGPT) 21 U/L (12-78) Alkaline Phosphatase 83 U/L (45-117) Total Protein 7.5 gm/dl (6.4-8.2) Albumin 3.9 gm/dl (3.4-5.0) Lipase 76 U/L (73-393) Laboratory results reviewed by me Medications Administered Medications (Trade) Dose Ordered Sig/Vega Route Start Time Stop Time Status Last Admin Dose Admin Sodium Chloride 1,000 ml @ 125 mls/hr Q8H STAT IV 03/19/18 06:43 03/19/18 09:02 DC 03/19/18 06:43 125 MLS/HR Ondansetron HCl (Zofran Inj) 4 mg NOW STAT IV 03/19/18 07:55 03/19/18 08:02 DC 03/19/18 08:17 4 MG Amoxicillin/ Clavulanate Potassium (Augmentin Tab) 875 mg ONE ONCE PO 03/19/18 08:00 03/19/18 08:02 DC 03/19/18 08:16 875 MG ECG Per My Interpretation Indication: abdominal pain Rate (beats per minute): 66 Rhythm: sinus with SA Findings: 1st degree AV block, LBBB, PVC, no acute ischemic change ED Course 0640: The patient was evaluated in room B6. A complete history and physical exam was performed. 0643: Sodium Chloride 1000 ml @ 125 mls/hr IV 0758: I reevaluated the patient. She states that she feels well and wants to go home. I offered to let her stay. Patient states that she agrees to return if the symptoms escalate. Discussed results and discharge instructions. She verbalized understanding and agreement. The patient is ready for discharge. Medical Decision Prior records/ancillary studies reviewed. Triage Nursing notes reviewed and agree them. The patient's history was concerning for abdominal pain. Differential diagnosis: Etiologies such as infections, inflammatory bowel disease, colitis, mesenteric ischemia, appendicitis, diverticulitis, PUD, biliary pathology, UTI, pancreatitis, obstruction, aortic pathology, renal colic, as well as others were entertained. Physical examination findings: As above. ER treatment provided: Saline hydration IV Zofran Oral Augmentin On reassessment the patient felt better. Diagnostics interpreted by me: ECG: No signs of A. fib. No ischemia. The labs revealed an unremarkable CBC and chemistry panel. The patient has no signs of significant leukocytosis or anemia. Imaging studies: CT scan as above The patient has some mild diverticulitis. This correlates with the tenderness. She is doing well. She noted some bleeding in her stool that was worse yesterday. She has had none today. I suspect that this is the cause. She also has moderate diverticulosis present. Since she is afebrile and has no significant findings otherwise on imaging I discussed treatment options. I did offer her to stay in the hospital but the patient declined. She would like to go home. Because of this outpatient treatment and close follow-up was recommended. I did outline the treatment with her and family. If she worsens in any way she will be back. I gave my usual and customary discussion regarding this issue. She will be treated with prescription Augmentin and Zofran. By the evaluation outlined above other emergent etiologies such as those listed in the differential, as well as others, were deemed relatively unlikely. The patient was educated about the findings as listed above. All questions were answered and the patient was pleased with the treatment. Return instructions were outlined and the patient was discharged in stable condition. The patient was referred to her PCP for follow-up for a recheck of the current condition. Medication Reconcilliation Current Medication List: was personally reviewed by me Blood Pressure Screening Patient's blood pressure: Elevated blood pressure Blood pressure disposition: Referred to PCP Impression Primary Impression: Diverticulitis Additional Impressions: Lower abdominal pain Hematochezia Scribe Attestation The scribe's documentation has been prepared under my direction and personally reviewed by me in its entirety. I confirm that the note above accurately reflects all work, treatment, procedures, and medical decision making performed by me. Departure Information Dispostion Home / Self-Care Prescriptions Ondasetron Odt (ZOFRAN ODT) 4 Mg Tab 4 MG SL Q6H for Nausea, #6 TAB Prov: Jose Alejandro Montelongo MD 03/19/18 Amoxicillin & Pot Clavulanate (Augmentin 875-125 mg) 1 Tab Tab 875 MG PO BID, #19 TAB Prov: Jose Alejandro Montelongo MD 03/19/18 Referrals Dante De La Cruz M.D. (PCP) Forms HOME CARE DOCUMENTATION FORM, IMPORTANT VISIT INFORMATION Patient Instructions My [facility] Additional Instructions DIVERTICULITIS INSTRUCTIONS: Amoxicillin Clavulanate (Augmentin) 875mg: Take one pill twice daily for 10 days for your bowel infection. All antibiotics can cause diarrhea. If this occurs and you feel worse or it does not resolve in 1-2 days follow up with your doctor or return to the Emergency Department as this could be signs of serious underlying problems. Any medication can cause an allergic reaction, stop the pills immediately and return to the ER for rash, hives, breathing difficulties, or swelling. Acetaminophen(Tylenol) may be used for fever or pain. Use 1000mg every six hours as needed. Avoid using more than 4000mg in a 24 hour period. Zofran 4 mg oral dissolving tablets: take one tablet and allow it to melt in your mouth every 4 hours as needed for nausea. Rest and drink plenty of fluids as tolerated. Slow sips of water or sports drinks are recommended instead of large amounts all at once. Continue current medications. Once your stomach is settled start with a clear liquid diet (jello, soup broth, etc.) and then advance as tolerated. You should avoid full, heavy meals for about 24 hrs from the time your symptoms resolved. Return to the ER immediately for worsening or persistent abdominal pain, vomiting, fevers, chest pains, difficulty breathing, black or bloody stools, worsening of your condition, or as needed. Follow up with your primary physician in 2-3 days for a recheck of your current condition and blood pressure. Follow-up with GI as scheduled. Problem Qualifiers
[2018-03-19 07:33] LABS: ALBUMIN 3.9 gm/dl (3.4-5.0); CALCIUM 8.8 mg/dl (8.5-10.1); CREATININE 1.66 mg/dl (0.60-1.20); POTASSIUM 4.3 mmol/L (3.5-5.1)
--- NOTE | 2018-03-19 07:35 | DIAGNOSTIC IMAGING REPORT ---
ABD/PELVIS NO IV OR ORAL CONT CT DOSE: 394.24 mGy.cm HISTORY: Pain lower abd pain, vomiting, bloody stool TECHNIQUE: Multiaxial CT images of the abdomen and pelvis were performed without contrast. A dose lowering technique was utilized adhering to the principles of ALARA. COMPARISON STUDY: 08/29/2013. FINDINGS: Pre-existing left augmentation mammoplasty versus reconstructive mammoplasty. External hernia. Minimal bibasilar interstitial prominence. Liver spleen and pancreas appear unremarkable. No evidence for gallbladder distention. Kidneys are negative for calcification or hydronephrosis. The small bowel as well as colonic pattern appear unremarkable. The appendix is unremarkable. There are findings of significant wall thickening of the sigmoid colon. Chronic sigmoid diverticulosis is present, with a trace amount of free fluid within the low pelvic cul-de-sac. This may indicate a minimal degree of superimposed acute diverticulitis of the proximal sigmoid. There is no evidence for abscess or collection. Bladder is midline. IMPRESSION: 1. Extensive chronic sigmoid diverticulosis with a small component of acute diverticulitis superior to the rectosigmoid junction. 2. Trace amount of free fluid fluid within the pelvic cul-de-sac. 3. No evidence for abscess collection or obstruction. The above report was generated using voice recognition software. It may contain grammatical, syntax or spelling errors. Electronically signed by: Christopher Hutchinson M.D. 03/19/2018 7:34 AM Dictated Date/Time: 03/19/2018 7:29 AM
[2018-03-19 07:36] LABS: TOTAL PROTEIN 7.5 gm/dl (6.4-8.2)
[2018-03-19] MEDS ORDERED: ONDANSETRON INJ 2 MG/ML 2 ML VIAL IV STA (07:55)
[2018-03-19] MEDS ORDERED: AMOXICILLIN/CLAVULANATE TAB 875 MG TAB PO ONE (08:00)
[2018-03-19] MEDS ORDERED: AMOX875T PO (08:05)
[2018-03-19] MEDS ORDERED: ONDA4TAB10 SL (08:05)
[2018-03-19 08:17] VITALS: BP 160/91; PULSE 76; O2SAT 97
== END 2018-03-19 08:55 | disposition home or self-care (01) ==
LOC: C.EDB 06:14
DX: K57.92 Diverticulitis of intestine, part unspecified, without perforation or abscess without bleeding (principal); R10.30 Lower abdominal pain, unspecified; K92.1 Melena; I10 Essential (primary) hypertension; Z86.73 Personal history of transient ischemic attack (TIA), and cerebral infarction without residual deficits; M19.90 Unspecified osteoarthritis, unspecified site; Z79.82 Long term (current) use of aspirin; Z79.899 Other long term (current) drug therapy

== ENCOUNTER → 2018-03-30 | Day surgery (SDC) | payer OTHER, BC ==
[2018-03-28 11:47] VITALS: Ht 152.4 cm; Wt 52.3 kg
[~2018-03-30] VITALS: Ht 152.4 cm; Wt 52.3 kg
[~2018-03-30] MED LIST changes: +AMOX875T PO; +ATROPINE SULFATE 0.1 MG/ML 5ML SYR IV PRN; +DEXAMETHASONE SOD INJ 4 MG/ML VIAL ONE; +ETOMIDATE 2 MG/ML 20 ML VIAL IV ONE; +EpHEDrine SULFATE INJ 50 MG/ML AMP IV PRN; +EpHEDrine SULFATE INJ 50 MG/ML AMP ONE; +FENTANYL CITRATE INJ 50 MCG/1 ML 2 ML VIAL IV PRN; +FENTANYL CITRATE INJ 50 MCG/1 ML 2 ML VIAL ONE; +FLUC100T4 PO; +GLYCOPYRROLATE INJ 0.2 MG/ML VIAL ONE; +HYDROmorphone INJ 0.5 MG/0.5 ML SYR ONE; +LIDOCAINE HCL 2% 2 ML VIAL (20MG/ML) ONE; +NEOSTIGMINE METHYLSULFATE 5 MG/5 ML SYR ONE; +ONDANSETRON INJ 2 MG/ML 2 ML VIAL ONE; +PROPOFOL IV EMULSION 10 MG/ML 20 ML VIAL ONE; +ROCURONIUM BROMIDE 10 MG/ML 5 ML VIAL ONE; +SODIUM CHLORIDE 0.9% 500ML 500 ML IV ONE; +SULF800T23 PO; +TRIA120A
--- NOTE | 2018-03-30 09:51 | Endo History and Physical ---
History & Physical Date of Service: March 30, 2018. Chief Complaint: Dysphagia, hx of schatzki ring Referring Physician: Dr. Dante De La Cruz History of Present Illness dysphagia Past Surgical History Hx Cardiac Surgery: No Hx Internal Defibrillator: No Hx Pacemaker: No Hx Abdominal Surgery: Yes (DEBI BSO, TUBAL LIGATION, HERNIA REPAIR) Hx Post-Op Nausea and Vomiting: No Hx Cancer Surgery: Yes (L MASECTOMY) Hx Thoracic Surgery: No Hx Orthopedic: Yes (NECK SURGERY (LIMITED LOOKING UP)) Hx Urinary Tract Surgery: No Family History None Social History Smoking Status: Never Smoker Hx Substance Use: No Hx Alcohol Use: No Allergies Coded Allergies: No Known Allergies (Verified , 03/28/18) Current Medications Reported Home Medications Medications Dose Route/Sig Max Daily Dose Days Date Category Dose Instructions Bactrim Ds 800MG/160MG (Trimethoprim/Sulfamethoxazole) Tab 1 Tab PO BID 03/30/18 Reported Triamcinolone Acetonide (Triamcinolone Acetonide (Topic) 0.147 Mg/Gm Aer 03/30/18 Reported Diovan (Valsartan) 40 Mg Tab 40 Mg PO QAM 06/16/17 Reported Lopressor (Metoprolol Tartrate) 50 Mg Tab 50 Mg PO BID 06/07/17 Reported Imdur Ext Rel (Isosorbide Mononitrate) 60 Mg Ertab 60 Mg PO BID 06/07/17 Reported 1 TAB AM 1 TAB NOON Nitrostat (Nitroglycerin) 0.4 Mg Tab 0.4 Mg UT PRN 06/12/[address] 1 TAB UNDER TONGUE EVERY 5MIN UP TO 3 DOSES NEEDED FOR CHEST PAIN.CALL 911 IF PAIN PERSISTS Protonix (Pantoprazole Sodium) 40 Mg Tab 40 Mg PO QAM 06/12/16 Reported TAKE 30 MIN BEFORE BREAKFAST Detrol LA (Tolterodine Tartrate) 4 Mg Capcr 4 Mg PO HS 06/12/16 Reported Levothyroxine Sodium 25 Mcg Tab 25 Mcg PO QAM 06/12/16 Reported Lipitor (Atorvastatin Calcium) 40 Mg Tab 40 Mg PO HS 06/12/16 Reported Norvasc (Amlodipine Besylate) 10 Mg Tab 10 Mg PO QAM 06/12/16 Reported Aspirin Ec (Aspirin) 81 Mg Tab 81 Mg PO QAM 10/29/15 Reported Tricor (Fenofibrate) 145 Mg Tab 145 Mg PO QAM 08/04/10 Reported Vital Signs Weight (Kilograms): 52.27 Height (Feet): 5 Height (Inches): 0 Date Time Temp Pulse Resp B/P (MAP) Pulse Ox O2 Delivery O2 Flow Rate FiO2 03/30/18 09:43 36.8 56 16 165/67 (99) 97 Room Air Physical Exam General Appearance: WD/WN, no apparent distress Assessment and Plan EGD today
--- NOTE | 2018-03-30 10:13 | Discharge Instructions ---
Endoscopy Patient Instructions Date / Procedure(s) Performed March 30, 2018. EGD Allergy Information Coded Allergies: No Known Allergies (Verified , 03/28/18) Discharge Date / Findings March 30, 2018. large hiatal hernia; mild schatzki ring; tortuous esophagus Medication Instructions Stopped Medication(s): Patient stated she was told to hold the aspirin but couldn't tell me for how long. Restart Stopped Medication(s): OK to resume home medications Provider Instructions Activity Restrictions - No exercising or heavy lifting for 24 hours. - Do not drink alcohol the day of the procedure. - Do not drive a car or operate machinery until the day after the procedure. - Do not make any important decisions or sign important papers in 24 hours after the procedure. Following Day: - Return to full activity which may include returning to work/school. Diet Start your diet with liquids and light foods (jello, soup, juice, toast). Then eat your usual diet if not nauseated. Treatment For Common After Affects For mild abdominal pain, bloating, or excessive gas: - Rest - Eat lightly - Lie on right side Follow-Up Information Follow-up with Dr. Dante De La Cruz as scheduled Anesthesia Information What You Should Know You have had a procedure that required some medicine to reduce anxiety and discomfort. This treatment is called moderate sedation. After receiving the treatment, you may be sleepy, but you will be able to breathe on your own. The effects of the treatment may last for several hours. Follow these instructions along with Activity/Diet recommendations noted above: * Do NOT do anything where dizziness or clumsiness would be dangerous. * Rest quietly at home today, then you can be up and about tomorrow. * Have a responsible person stay with you the rest of today. * You may have had an I.V. today. If so, you may take the dressing off later today. Recommendations Call your doctor if: * Trouble breathing * Continuous vomiting for more than 24 hours * Temperature above 101 degrees * Severe abdominal pain or bloating * Pain not relieved by pain medicine ordered * There is increased drainage or redness from any incision * A large amount of rectal bleeding greater than 2-3 tablespoons. (If you had a polyp/s removed or have hemorrhoids, a small amount of blood - from the rectum is to be expected.) * You have any unanswered questions or concerns. IN THE EVENT OF A SERIOUS EMERGENCY, GO TO THE NEAREST EMERGENCY ROOM Your discharge instructions were prepared by provider Elena Heller. Patient Instructions Signature Page Tiffanie Harrell Patient (or Guardian) Signature/Date: I have read and understand the instructions given to me by my caregivers. Caregiver/RN/Doctor Signature/Date: The above-named patient and/or guardian has received patient instructions on this date. + Original Patient Signature Page (only) stays with chart. Please make copy for patient.
--- NOTE | 2018-03-30 10:17 | GI REPORT ---
Patient Name: Tiffanie Harrell Procedure Date: 03/30/2018 9:50 AM Date of : 1930 Admit Type: Outpatient Age: 87 Gender: Female Attending MD: Elena Heller DO Procedure: Upper GI endoscopy Providers: Elena Heller DO Referring MD: Dante De La Cruz Indications: Dysphagia Medicines: Propofol per Anesthesia Complications: No immediate complications. Estimated blood loss: Minimal. Estimated Blood Loss: Estimated blood loss was minimal. Procedure: Pre-Anesthesia Assessment: - Prior to the procedure, a History and Physical was performed, and patient medications, allergies and sensitivities were reviewed. The patient's tolerance of previous anesthesia was reviewed. - The risks and benefits of the procedure and the sedation options and risks were discussed with the patient. All questions were answered and informed consent was obtained. - Patient identification and proposed procedure were verified prior to the procedure by the physician and the nurse. The procedure was verified in the pre-procedure area in the procedure room. - Mental Status Examination: alert and oriented. Airway Examination: normal oropharyngeal airway and neck mobility. Respiratory Examination: clear to auscultation. CV Examination: normal. Abdominal Examination: bowel sounds present, abdomen soft and non-tender, no masses or organomegaly noted. - ASA Grade Assessment: III - A patient with severe systemic disease. After obtaining informed consent, the endoscope was passed under direct vision. Throughout the procedure, the patient's blood pressure, pulse, and oxygen saturations were monitored continuously. The scope was introduced through the mouth, and advanced to the second part of duodenum. The upper GI endoscopy was accomplished without difficulty. The patient tolerated the procedure well. Findings: The examined esophagus was tortuous. A non-obstructing and mild Schatzki ring (acquired) was found in the lower third of the esophagus. A guidewire was placed and the scope was withdrawn. Dilation was performed with a Savary dilator with mild resistance at 51 Fr. A large hiatal hernia was present. The examined duodenum was normal. Impression: - Tortuous esophagus. - Non-obstructing and mild Schatzki ring. Dilated. - Large hiatal hernia. - Normal examined duodenum. - No specimens collected. Recommendation: - Follow an antireflux regimen. - Continue present medications. - Repeat upper endoscopy PRN for retreatment. - Return to primary care physician as previously scheduled. - Discharge patient to home. Elena Heller D.O. Elena Heller, 03/30/2018 10:16:30 AM This report has been signed electronically. Note Initiated On: 03/30/2018 9:50 AM Number of Addenda: 0 I attest to the content of the Intraoperative Record and orders documented therein, exceptions below {[id number]}
--- NOTE | 2018-03-30 10:28 | Anesthesiology Progress Note ---
Anesthesia Post Op Note Date & Time March 30, 2018 at 10:28 Vital Signs Pain Intensity: 0 Vital Signs Past 12 Hours Date Time Temp Pulse Resp B/P (MAP) Pulse Ox O2 Delivery O2 Flow Rate FiO2 03/30/18 09:43 36.8 56 16 165/67 (99) 97 Room Air Notes Mental Status: alert / awake / arousable, participated in evaluation Pt Amnestic to Procedure: Yes Nausea / Vomiting: adequately controlled Pain: adequately controlled Airway Patency, RR, SpO2: stable & adequate BP & HR: stable & adequate Hydration State: stable & adequate Anesthetic Complications: no major complications apparent
[2018-03-30 10:35] VITALS: BP 147/53; PULSE 57; O2SAT 97
--- NOTE | 2018-03-30 11:11 | Progress Note ---
Progress Note Date of Service March 30, 2018. Progress Note Uneventful esophageal dilation. Large hiatal hernia. Patient felt good after waking from anesthesia. I spoke with her and her [id number]. 10 minutes later, nursing called me to come to bedside. She acutely developed epigastric and chest pain and back pain. Appears uncomfortable. vitals stable. Stat xray done to r/o free air and patient being sent to the ER. ER physician notified. Family updated.
--- NOTE | 2018-03-30 11:39 | DIAGNOSTIC IMAGING REPORT ---
KUB HISTORY: Epigastric abdominal pain status post endoscopy. COMPARISON: Abdomen and pelvis CT 03/19/2018. FINDINGS: The bowel gas pattern is unremarkable. There are no dilated loops of small bowel to suggest an obstruction. No renal calculi. No ureteral calculi. No definite pneumoperitoneum or pneumatosis on this supine portable study. Levoscoliosis of the lumbar spine with extensive degenerative changes within the thoracolumbar spine. The lung bases appear clear. IMPRESSION: No significant abnormality within the abdomen or pelvis. Electronically signed by: Mitchell Celis M.D. 03/30/2018 11:38 AM Dictated Date/Time: 03/30/2018 11:31 AM
== END | disposition home or self-care (01) ==
LOC: C.GI 09:01
PROVIDERS: ATTEND Internal Medicine
DX: R13.10 Dysphagia, unspecified (principal); K22.2 Esophageal obstruction; K44.9 Diaphragmatic hernia without obstruction or gangrene; K21.9 Gastro-esophageal reflux disease without esophagitis; E03.9 Hypothyroidism, unspecified; Z86.000 Personal history of in-situ neoplasm of breast; Z98.51 Tubal ligation status; Z98.890 Other specified postprocedural states; Z79.899 Other long term (current) drug therapy; Z79.82 Long term (current) use of aspirin; Z90.12 Acquired absence of left breast and nipple

== ENCOUNTER 2018-04-12 08:45 | Emergency (ER) | payer OTHER, BC ==
[~2018-04-12] VITALS: Ht 152.4 cm; Wt 56.0 kg
[~2018-04-12 08:45] MED LIST changes: -AMOX875T PO; -ATROPINE SULFATE 0.1 MG/ML 5ML SYR IV PRN; -DEXAMETHASONE SOD INJ 4 MG/ML VIAL ONE; -ETOMIDATE 2 MG/ML 20 ML VIAL IV ONE; -EpHEDrine SULFATE INJ 50 MG/ML AMP IV PRN; -EpHEDrine SULFATE INJ 50 MG/ML AMP ONE; -FENTANYL CITRATE INJ 50 MCG/1 ML 2 ML VIAL IV PRN; -FENTANYL CITRATE INJ 50 MCG/1 ML 2 ML VIAL ONE; -GLYCOPYRROLATE INJ 0.2 MG/ML VIAL ONE; -HYDROmorphone INJ 0.5 MG/0.5 ML SYR ONE; -LIDOCAINE HCL 2% 2 ML VIAL (20MG/ML) ONE; -NEOSTIGMINE METHYLSULFATE 5 MG/5 ML SYR ONE; -ONDANSETRON INJ 2 MG/ML 2 ML VIAL ONE; -PROPOFOL IV EMULSION 10 MG/ML 20 ML VIAL ONE; -ROCURONIUM BROMIDE 10 MG/ML 5 ML VIAL ONE; -SODIUM CHLORIDE 0.9% 500ML 500 ML IV ONE
[2018-04-12 09:19] VITALS: TEMP 36.7; Ht 152.4 cm; Wt 56.0 kg
[2018-04-12 09:22] LABS: BASO % 0.1 %; BASO ABS # 0.01 K/uL (0-0.2); EOS % 7.5 %; HEMOGLOBIN 11.8 g/dL (12.0-16.0); IG# 0.01 K/uL (0.00-0.02); LYMPH % 27.6 %; LYMPH ABS # 1.85 K/uL (1.2-3.4); MEAN CELL VOLUME 85.6 fL (80-100); MEAN CORPUSCULAR HEMOGLOBIN 29.7 pg (25-34); MEAN CORPUSCULAR HGB CONC 34.7 g/dl (32-36); MEAN PLATELET VOLUME 9.5 fL (7.4-10.4); MONO % 5.5 %; MONO ABS # 0.37 K/uL (0.11-0.59); NEUT % 59.2 %; NEUT ABS # 3.97 K/uL (1.4-6.5); PLATELET COUNT 355 K/uL (130-400); RED CELL DISTRIBUTION WIDTH CV 13.4 % (11.5-14.5); WHITE BLOOD COUNT 6.71 K/uL (4.8-10.8)
[2018-04-12] MEDS ORDERED: OPTIRAY 320 IV PRN (09:30)
[2018-04-12] MEDS ORDERED: SODIUM CHLORIDE 0.9% 1000ML 1,000 ML IV ONE (09:30)
[2018-04-12 09:44] LABS: ALBUMIN 2.6 gm/dl (3.4-5.0); CALCIUM 8.6 mg/dl (8.5-10.1); CREATININE 0.76 mg/dl (0.60-1.20); TOTAL PROTEIN 6.5 gm/dl (6.4-8.2)
[2018-04-12] MEDS ORDERED: LEVO25TA PO (10:27)
[2018-04-12] MEDS ORDERED: AMLO-114 PO (10:27)
[2018-04-12] MEDS ORDERED: NTRGSL/4 UT (10:27)
[2018-04-12] MEDS ORDERED: ASPI81TA28 PO (10:27)
[2018-04-12] MEDS ORDERED: FENO145T26 PO (10:27)
[2018-04-12] MEDS ORDERED: ATOR-24 PO (10:27)
[2018-04-12] MEDS ORDERED: DTRSR4 PO (10:27)
[2018-04-12] MEDS ORDERED: ISOS60TA25 PO (10:27)
[2018-04-12] MEDS ORDERED: VALS40TA2 PO (10:27)
[2018-04-12] MEDS ORDERED: METO25TA56 PO (10:27)
[2018-04-12] MEDS ORDERED: PANT40TA PO (10:27)
--- NOTE | 2018-04-12 11:06 | DIAGNOSTIC IMAGING REPORT ---
ABDOMEN AND PELVIS CT WITH IV CONTRAST CT DOSE: 675.68 mGycm HISTORY: Right lower quadrant abdominal pain. TECHNIQUE: Multiaxial CT images of the abdomen and pelvis were performed following the use of intravenous contrast. A dose lowering technique was utilized adhering to the principles of ALARA. COMPARISON STUDY: Abdominal CT 04/01/2018. Abdomen and pelvis CT 03/30/2018. FINDINGS: The lung bases are clear. Moderate hiatus hernia, unchanged. No pneumoperitoneum. No pneumatosis. Levoscoliosis of the lumbar spine. There is a left breast implant. Midline skin aurelio consistent with recent incision. Mild fast renal within the midline of the omentum is also likely due to recent postoperative change. Suture material adjacent to the duodenal bulb with minimal fat stranding at this location suggestive of postoperative change. Small amount of gas within the bladder lumen likely due to recent catheterization. Small amount of pelvic free fluid. Question mild focal thickening within the rectum and minimal perirectal fat stranding. This is best seen on image 275. Colonic diverticulosis. The visualized appendix is unremarkable. The liver, gallbladder, pancreas, and spleen are unremarkable. Normal adrenal glands. No retroperitoneal lymphadenopathy. Mild fullness within the bilateral renal collecting systems without zuleyka hydronephrosis. The bladder is mildly distended. IMPRESSION: 1. Post surgical changes consistent with prior duodenal perforation repair. There is suture material and minimal fat stranding adjacent to the duodenal bulb likely representing residual postoperative change. There is also mild fat stranding within the midline of the omentum suggesting postoperative change. 2. The pneumoperitoneum has resolved. 3. Mildly distended bladder. There is mild fullness within the bilateral renal collecting systems without zuleyka hydronephrosis. This is likely due to the distended bladder. 4. Moderate hiatus hernia. 5. Focal thickening versus under distention within the rectum as described above. Clinical correlation recommended to assess for a focal proctitis. 6. Small amount of pelvic free fluid. Electronically signed by: Mitchell Celis M.D. 04/12/2018 11:04 AM Dictated Date/Time: 04/12/2018 10:43 AM
[2018-04-12 12:02] VITALS: BP 178/68; PULSE 55; O2SAT 98
--- NOTE | 2018-04-12 15:05 | EMERGENCY ROOM VISIT NOTE ---
ED Visit Note First contact with patient: 08:47 I have personally seen and evaluated the patient with the PA. I agree with the diagnosis and management decisions and have been personally involved in the case. Please see Jose Alejandro Young PA-C's notes for further details of the history, physical and visit.
--- NOTE | 2018-04-12 16:16 | EMERGENCY ROOM VISIT NOTE ---
ED Visit Note First contact with patient: 08:53 Chief Complaint: Abdominal pain. History of Present Illness: Ms. Harrell is a 87 year-old white female who was brought into the ED for evaluation of right lower quadrant abdominal pain. Patient was transferred from [facility] this morning. She was convalescing at [facility] after abdominal surgery. On March 26 of this year she had an EGD performed to dilate a esophageal ring. She returned later that day and she was found to have a perforated duodenum which required surgical repair. During her course in the ED she remained stable and was discharged to [facility] on April 07. According to records from [facility] she has been pain and symptom-free since her stay until last evening. It is reported that last evening she started complaining of right groin and right lower quadrant abdominal pain. There was also a note from EMS that she was having right flank pain. Patient reports she was medicated this morning and by the time she arrived at the hospital she was pain-free. Currently patient denies any flank, groin or right lower quadrant abdominal pain. She reports the pain was mild last night but really could not describe her pain. She said there was no radiation of her pain. She remembers that when the right lower quadrant was palpated there was some mild tenderness last evening but she did not identify any other aggravating factors. I try to check her medical records but I was not able to find specifically what was given for pain this morning to alleviate her discomfort. She reports she was not having any associated symptoms including sensations of fevers, chills, sweats, chest pain, shortness of breath, nausea, vomiting, diarrhea, flank pain, rectal bleeding, black/tarry stools, urinary symptoms, hematuria. Review of Systems: As noted above in history of present illness. All body systems were reviewed and found to be negative as noted above. Past Medical History: As previously noted, bronchitis, colitis, diverticulitis, dyspnea, hematochezia, hypertension, multiple strokes, osteoarthritis, precordial chest pain, vertigo, breast cancer and she is status post hysterectomy, unspecified hernia repair, mastectomy and unspecified neck surgery. Current Medications: Medications Dose Route/Sig Max Daily Dose Days Date Category Diovan (Valsartan) 40 Mg Tab 40 Mg PO DAILY 04/12/18 Reported Detrol LA (Tolterodine Tartrate) 4 Mg Capcr 4 Mg PO HS 04/12/18 Reported Protonix (Pantoprazole Sodium) 40 Mg Tab 40 Mg PO DAILY 04/12/18 Reported Nitrostat (Nitroglycerin) 0.4 Mg Tab 0.4 Mg UT PRN 04/12/18 Reported Lopressor (Metoprolol Tartrate) 25 Mg Tab 25 Mg PO BID 04/12/18 Reported Synthroid (Levothyroxine Sodium) 25 Mcg Tab 25 Mcg PO DAILY 04/12/18 Reported Imdur Ext Rel (Isosorbide Mononitrate) 60 Mg Ertab 60 Mg PO BID 04/12/18 Reported Tricor (Fenofibrate) 145 Mg Tab 145 Mg PO QAM 04/12/18 Reported Lipitor (Atorvastatin Calcium) 40 Mg Tab 40 Mg PO HS 04/12/18 Reported Aspirin Ec (Aspirin) 81 Mg Tab 81 Mg PO DAILY 04/12/18 Reported Norvasc (Amlodipine Besylate) 10 Mg Tab 10 Mg PO DAILY 04/12/18 Reported Allergies to Medications: Lisinopril. Social History: Patient is not employed; she feels safe in her home environment ; she denies tobacco and alcohol use. Physical Examination: Vital Signs: Date Time Temp Pulse Resp B/P (MAP) Pulse Ox O2 Delivery O2 Flow Rate FiO2 04/12/18 12:02 55 178/68 98 04/12/18 11:16 59 197/64 98 Room Air 04/12/18 10:13 51 20 158/66 99 04/12/18 09:19 36.7 59 20 166/85 97 Room Air GENERAL: 87-year-old female in no acute distress, nontoxic-appearing, afebrile and hemodynamically stable. NEUROLOGICAL: Awake, alert and oriented to person, place and time. Answering questions appropriately and following commands. Good hand eye coordination. SKIN: Warm, dry and pink. Abdomen: Recent abdominal incision is clean your dry and intact with no drainage. Minimal erythema. HEENT: Atraumatic and normocephalic. PERRLA. Sclera white and conjunctiva pink. Airway is patent. Speech is normal and clear. No lymphadenopathy. Trachea midline. No jugular venous distention. BACK: No tenderness over the bony spine. No CVA tenderness. THORAX: Lungs sounds are clear to auscultation and equal bilaterally with symmetrical chest wall. No wheezing, rales or rhonchi. HEART: Regular rate and rhythm. No gallops, rubs or murmurs are appreciated. ABDOMEN: Flat and soft with mild incisional tenderness but no tenderness in the right lower quadrant or throughout the abdomen. Positive bowel sounds in all quadrants. No guarding, rigidity or organomegaly. EXTREMITIES: Moves all extremities well on command and with purpose. All distal neurovascular statuses are intact and equal bilaterally. ED Course: Patient is assessed as noted above. Patient's medication list was reviewed. Laboratory Testing: Test 04/12/18 08:30 04/12/18 10:05 Range/Units White Blood Count 6.71 4.8-10.8 K/uL Red Blood Count 3.97 4.2-5.4 M/uL Hemoglobin 11.8 12.0-16.0 g/dL Hematocrit 34.0 37-47 % Mean Corpuscular Volume 85.6 80-100 fL Mean Corpuscular Hemoglobin 29.7 25-34 pg Mean Corpuscular Hemoglobin Concent 34.7 32-36 g/dl Platelet Count 355 130-400 K/uL Mean Platelet Volume 9.5 7.4-10.4 fL Neutrophils (%) (Auto) 59.2 % Lymphocytes (%) (Auto) 27.6 % Monocytes (%) (Auto) 5.5 % Eosinophils (%) (Auto) 7.5 % Basophils (%) (Auto) 0.1 % Neutrophils # (Auto) 3.97 1.4-6.5 K/uL Lymphocytes # (Auto) 1.85 1.2-3.4 K/uL Monocytes # (Auto) 0.37 0.11-0.59 K/uL Eosinophils # (Auto) 0.50 0-0.5 K/uL Basophils # (Auto) 0.01 0-0.2 K/uL RDW Standard Deviation 42.0 36.4-46.3 fL RDW Coefficient of Variation 13.4 11.5-14.5 % Immature Granulocyte % (Auto) 0.1 % Immature Granulocyte # (Auto) 0.01 0.00-0.02 K/uL Sodium Level 142 136-145 mmol/L Potassium Level 4.0 3.5-5.1 mmol/L Chloride Level 111 98-107 mmol/L Carbon Dioxide Level 24 21-32 mmol/L Anion Gap 7.0 3-11 mmol/L Blood Urea Nitrogen 18 7-18 mg/dl Creatinine 0.76 0.60-1.20 mg/dl Est Creatinine Clear Calc Drug Dose 40.9 ml/min Estimated GFR () 81.7 Estimated GFR (Non- 70.5 BUN/Creatinine Ratio 24.1 10-20 Random Glucose 105 70-99 mg/dl Calcium Level 8.6 8.5-10.1 mg/dl Total Bilirubin 0.3 0.2-1 mg/dl Direct Bilirubin 0.1 0-0.2 mg/dl Aspartate Amino Transf (AST/SGOT) 43 15-37 U/L Alanine Aminotransferase (ALT/SGPT) 42 12-78 U/L Alkaline Phosphatase 101 45-117 U/L Total Protein 6.5 6.4-8.2 gm/dl Albumin 2.6 3.4-5.0 gm/dl Lipase 570 73-393 U/L Urine Color YELLOW Urine Appearance CLEAR CLEAR Urine pH 6.0 4.5-7.5 Urine Specific [place] 1.013 1.000-1.030 Urine Protein NEG NEG Urine Glucose (UA) NEG NEG Urine Ketones NEG NEG Urine Occult Blood NEG NEG Urine Nitrite NEG NEG Urine Bilirubin NEG NEG Urine Urobilinogen NEG NEG Urine Leukocyte Esterase TRACE NEG Urine WBC (Auto) 1-5 0-5 /hpf Urine RBC (Auto) 0-4 0-4 /hpf Urine Hyaline Casts (Auto) 0 0-5 /lpf Urine Epithelial Cells (Auto) 10-20 0-5 /lpf Urine Bacteria (Auto) NEG NEG Urine Crystals URIC ACID NONE PRSENT IV Contrast Abdominal/Pelvic CT: Was reviewed by myself and read by the radiologist showing postsurgical changes consistent with duodenal perforation repair. Suture material and minimal fat stranding adjacent to the duodenal bulb. Mild fat stranding along the midline of the omentum. Pneumoperitoneum has resolved. Mild distention of the bladder with mild fullness within the bilateral renal collection system but no zuleyka hydronephrosis. Moderate hiatal hernia. Focal thickening versus under distending of the rectum. Small amount of free fluid. Normal-appearing liver, gallbladder's, pancreas and spleen. Patient was hydrated with normal saline. Patient was reassessed multiple times during her stay in the emergency department. Patient's case was reviewed with Dr. Ulrich; we agreed on diagnostic approach, treatment, disposition and plan. Patient and her granddaughter were educated about today's findings and instructed on her treatment plan; they verbalized understanding and agreement with this plan. Clinical Impression: Right lower quadrant abdominal pain, resolved. Elevated lipase. Decision-Making: Initially my differential diagnosis I considered bowel obstruction, perforated viscus, appendicitis, postsurgical infection, ureter calculus and other causes. Disposition: Patient discharged back to [facility]; prior to departure she was reassessed and remained pain and symptom-free. Plan: It was encouraged that the patient continue her current medications. It was encouraged that the patient had her pancreatic enzyme rechecked in 3-4 days. It was encouraged that the patient be return to the ED for returning of uncontrolled pain, worsening pancreatic enzymes, fever, vomiting or any new/ concerning symptoms.
== END 2018-04-12 12:03 | disposition home or self-care (01) ==
LOC: C.EDB 08:46
DX: R10.31 Right lower quadrant pain (principal); R74.8 Abnormal levels of other serum enzymes; K52.9 Noninfective gastroenteritis and colitis, unspecified; K57.92 Diverticulitis of intestine, part unspecified, without perforation or abscess without bleeding; I10 Essential (primary) hypertension; Z86.73 Personal history of transient ischemic attack (TIA), and cerebral infarction without residual deficits; M19.90 Unspecified osteoarthritis, unspecified site; Z85.3 Personal history of malignant neoplasm of breast

== ENCOUNTER 2019-11-03 08:23 | Inpatient (IN) ==
[2019-11-03 09:09] LABS: Basophils # (auto) 0.01 K/uL (0-0.2); Basophils % (auto) 0.2 %; Eosinophils # (auto) 0.29 K/uL (0-0.5); Eosinophils % (auto) 4.8 %; Hematocrit (blood only) 38.8 % (37-47); Hemoglobin 12.9 g/dL (12.0-16.0); Immature Granulocytes # (auto) 0.01 K/uL (0.00-0.02); Immature Granulocytes % (auto) 0.2 %; Lymphocytes # (auto) 2.13 K/uL (1.2-3.4); Lymphocytes % (auto) 35.3 %; Mean Corpuscular Hemoglobin 29.7 pg (25-34); Mean Corpuscular Hgb Conc 33.2 g/dL (32-36); Mean Corpuscular Volume 89.4 fL (80-100); Mean Platelet Volume 10.2 fL (7.4-10.4); Monocytes # (auto) 0.41 K/uL (0.11-0.59); Monocytes % (auto) 6.8 %; Neutrophils # (auto) 3.18 K/uL (1.4-6.5); Neutrophils % (auto) 52.7 %; Platelet Count 197 K/uL (130-400); RDW Coefficient of Variation 13.6 % (11.5-14.5); RDW Standard Deviation 44.9 fL (36.4-46.3); Red Blood Count 4.34 M/uL (4.2-5.4); White Blood Count 6.03 K/uL (4.8-10.8)
[2019-11-03] MEDS: SODIUM CHLORIDE 0.9% 1000ML 1,000 ML IV SCH ×2 (09:10→16:52)
[2019-11-03 09:21] LABS: Appearance Urine Clear (Clear); Bacteria Urine Automated 2+ (Negative); Bilirubin Urine Negative (Negative); Blood Urine Trace (Negative); Cast Urine Automated 0 /lpf (0-5); Color Urine Yellow; Glucose Urine UA Negative (Negative); Ketones Urine Negative (Negative); Leukocyte Esterase Urine Trace (Negative); Nitrite Urine Negative (Negative); Protein Urine Negative (Negative); Specific Gravity Urine 1.009 (1.000-1.030); Urobilinogen Urine Negative (Negative); pH Urine 6.5 (4.5-7.5)
[2019-11-03 09:25] LABS: Alanine Aminotransferase 16 U/L (12-78); Albumin Level 3.7 gm/dl (3.4-5.0); Aspartate Aminotransferase 20 U/L (15-37); BUN Creatinine Ratio 28.5 (10-20); Blood Urea Nitrogen 39 mg/dl (7-18); Calcium 9.2 mg/dl (8.5-10.1); Carbon Dioxide 24 mmol/L (21-32); Chloride 111 mmol/L (98-107); Creatinine Clr Calc Pharmacy 22.2 ml/min; Est GFR (African American) 40.2; Est GFR (Non-African American) 34.7; Glucose 107 mg/dl (70-99); Lipase 73 U/L (73-393); Magnesium 2.3 mg/dl (1.8-2.4); Potassium 3.5 mmol/L (3.5-5.1); Sodium 142 mmol/L (136-145)
--- NOTE | 2019-11-03 09:27 | CT Scan Report ---
CT head/brain wo con CT DOSE: 614.27 mGy.cm HISTORY: Mental status change confusion TECHNIQUE: Multiaxial CT images of the head were performed without the use of intravenous contrast. A dose lowering technique was utilized adhering to the principles of ALARA. Comparison: 06/25/2019 Findings: The paranasal sinuses and mastoid air cells are clear. The calvarium and skull base are int act. The ventricles and sulci are within normal limits. There is no mass, hematoma, midline shift, or acute infarct. Age-related changes of atrophy and chronic small vessel change. Impression: No acute intracranial abnormality. Age-related atrophy and chronic small vessel change. The above report was generated using voice recognition software. It may contain grammatical, syntax or spelling errors. Electronically signed by: Christopher Hutchinson M.D. 11/03/2019 9:26 AM
[2019-11-03 09:36] LABS: Albumin Globulin Ratio 1.2 (0.9-2); Alkaline Phosphatase 54 U/L (45-117); Bilirubin,Total 0.5 mg/dl (0.2-1); Globulin 3.2 gm/dl (2.5-4.0); NT Pro B Type Natriuretic Pept 392 pg/ml (0-1800); Total Protein 6.9 gm/dl (6.4-8.2); Troponin I < 0.015 ng/ml (0-0.045)
--- NOTE | 2019-11-03 10:20 | XRay Report ---
CHEST AND ABDOMEN 2 VIEWS HISTORY: confusion COMPARISON: Chest 10/31/2019. FINDINGS: No pneumothorax. No pleural effusions. There are low lung volumes. The heart is borderline enlarged. Mitral annulus calcifications are noted. Mild interstitial thickening which is likely chron ic. Cervical spinal fusion hardware. Levoscoliosis of the lumbar spine. Calcifications in the deep pe lvis likely represent phleboliths. Moderate stool within the colon. No pneumoperitoneum. No pneumatos is. No dilated loops of bowel to suggest an obstruction. IMPRESSION: 1. Mild interstitial thickening within the lungs which is likely chronic. 2. No evidence for bowel obstruction. 3. Moderate stool within the colon. Electronically signed by: Mitchell Celis M.D. 11/03/2019 10:19 AM
[2019-11-03] MEDS ORDERED: NITROGLYCERIN SL 0.4 MG/TAB TAB SL PRN (12:37)
[2019-11-03] MEDS ORDERED: ALUMINUM/MAGNESIUM SUSP 30 ML UDC PO PRN (12:37)
[2019-11-03] MEDS ORDERED: POLYETHYLENE (MIRALAX) 17 GM PACK PO PRN (12:37)
[2019-11-03] MEDS ORDERED: ACETAMINOPHEN 325 MG TAB PO PRN (12:37)
[2019-11-03] MEDS ORDERED: ZOLPIDEM TARTRATE 5 MG TAB PO PRN (12:37)
[2019-11-03] MEDS ORDERED: SODIUM CHLORIDE 0.9% 1000ML 1,000 ML IV SCH (12:45)
--- NOTE | 2019-11-03 13:03 | History & Physical Report ---
Date of Service November 03, 2019 Assessment & Plan (1) Symptomatic bradycardia: With association of chest pain that goes across both shoulders and her history of CAD Left bundle branch block is old and previous EKGs Bradycardia could be medications related Decreased her metoprolol from 50 mg twice daily to 12.5 mg twice daily, starting tomorrow, will give her a holiday today Added Norvasc admit to telemetry obtain serial cardiac enz NTG SL/topical prn CP consult pumper head Obtain 2D echo pain management Check hemoglobin A1c/lipids to stratify patient risk factors repeat EKG prn chest pain Heparin subcu for DVT prophylaxis (2) Altered mental status: Likely metabolic encephalopathy secondary to UTI and bradycardia At the time of my exam she appears to be oriented to time place and person and following commands TSH was within normal limits CT head was within normal limits We will continue to monitor for any relapse (3) Hyperlipidemia: Continue Lipitor and fenofibrate Check lipids panel (4) Hypothyroidism: TSH was checked and was within normal limits (5) CAD (coronary artery disease): As mentioned above (6) Chest pain: As mentioned above (7) UTI (urinary tract infection): Urine culture from grew Citrobacter braakii She was in Cipro which is supposed to be effective choice due to persistent white blood cells in the urine And weakness/confusion Recheck urine culture and blood cultures Started empirically on ceftriaxone and lactobacillus History of Present Illness Chief Complaint: Generalized weakness, chest tightness and shortness of breath Primary Care Provider: Dante De La Cruz MD 89-year-old female who was recently diagnosed with UTI about 3 weeks ago. Family noticed that she was confused, fatigued, they took her to the PCP about 3 weeks ago, she was found to have a urinary tract infection, she was giving a course of Cipro, urine culture at that time grew pansensitive Citrobacter braakii. Patient lives alone and just finished the course of the Cipro she took. She called her daughter this morning and stated she is not feeling well. Patient said that she had chest tightness across both shoulders associated with shortness of breath and headache. Daughter and grandson came and noticed that she does have some dizziness while they were trying to move her from bed to chair. At that time they called 911 and they were suspicious about possible stroke. They denies any focal weakness or facial droop or slurred speech. She was brought to the hospital CT head was negative but it was noticed that her heart rate has been low, during ED physician evaluation it went all the way down to 36bpm Her chest tightness or headache everything in the ED work is resolved except the generalized fatigue. Family stated that about 3 weeks ago she was started on Lasix because she had lower extremity swelling. Currently patient denies any chest pain or shortness of breath, denies any headache and appears to be comfortable in bed. Allergies Allergy/AdvReac Type Severity Reaction Status Date / Time lisinopril Allergy Unknown RASH Verified 11/03/19 10:33 CANCER MED, UNSURE OF NAME Allergy Unknown Unknown Uncoded 11/03/19 10:33 Home Medications Home Medications Medication Instructions Recorded Confirmed Type fenofibrate nanocrystallized 145 mg PO DAILY 06/25/19 11/03/19 History levothyroxine 25 mcg PO DAILY 06/25/19 11/03/19 History metoprolol tartrate 50 mg PO BID 06/25/19 11/03/19 History pantoprazole 40 mg PO DAILY 06/25/19 11/03/19 History atorvastatin 40 mg tablet 40 mg PO HS #90 tab 08/22/19 11/03/19 Rx aspirin 81 mg tablet,delayed 81 mg PO DAILY tab 08/27/19 11/03/19 History release docusate sodium 100 mg tablet 100 mg PO DAILY PRN tab 08/27/19 11/03/19 History isosorbide mononitrate 60 mg 60 mg PO BID #60 tab 08/28/19 11/03/19 Rx tablet,extended release 24 hr oxybutynin chloride 5 mg tablet 5 mg PO BID #180 tab 09/15/19 11/03/19 Rx valsartan 40 mg tablet 40 mg PO DAILY #90 tab 09/15/19 11/03/19 Rx furosemide 20 mg tablet 20 mg PO DAILY #30 tab 10/12/19 11/03/19 Rx nitroglycerin 0.4 mg sublingual 0.4 mg SL Q5M PRN #30 tab 10/25/19 11/03/19 Rx tablet ciprofloxacin HCl 250 mg tablet 250 mg PO Q12H 5 Days #10 tab 10/27/19 11/03/19 Rx Past Med/Surg History Medical History CAD (coronary artery disease) (Chronic) Colitis (Acute) Confusion (Acute) Dementia (Chronic) Edema, lower extremity (Acute) GI bleed (Acute) HTN (hypertension) (Chronic) Hyperlipidemia (Chronic) Hypothyroidism (Chronic) Osteoarthritis (Chronic) Shortness of breath (Acute) Surgical History No significant past surgical history Family History Other No pertinent family history Social History Preferred Language: Lao Communication Ability: Effective Vehicle Glass Technician Required: No Beliefs That Will Affect Care: None Current Living Situation: Alone Other Information That Helps Us Care for You: No Feels Safe at Home: Yes Safety Concerns: Feels Safe At This Time Smoking Status: Never smoker Hx Alcohol Use: No Review of Systems Review of Systems: Review of system Constitutional: Positive for generalized fatigue, headache and weakness Eyes: no blurring of vision / no eye pain / no discharge / no redness ENT: no hearing loss / no epistaxis /no swallowing problems Respiratory: no cough / no wheezing / no SOB / no hemoptysis Cardiovascular: Positive for chest pain / no lower extremity edema / no palpitation Abdomen: no pain / no nausea / no vomiting / no constipation Musculoskeletal: no joint pain / no muscle pain / no joint swelling Genitourinary: no dysuria / no incontinence / no urinary retention Neurologic: no focal weakness / no numbness/tingling / no ataxia Psychiatric: no depression symptoms / no anxiety / no insomnia Endocrine: no excessive thirst / no excessive urination Hematologic: no abnormal bleeding / no bruising / no LN swelling Skin: No rash / no pallor Physical Exam Physical Exam: Physical examination General frail elderly female appears to be in moderate acute distress HEENT: Atraumatic , normocephalic /no jaundice /no pallor /anicteric /no dry mucous membrane /normal external ear inspection Neck: Supple /no swelling /central trach Heart: S1/S2 severe bradycardia/regular rate and rhythm/no gallop /no rub /2/6 murmur Lungs: Clear to auscultation bilaterally/normal chest with expansion/no rhonchi/no rales/no wheezing/no use of accessory muscles of respiration Abdomen: Soft/nontender/no guarding/no rebound/no organomegaly/no pulsatile mass Musculoskeletal: No swelling/no edema/no tenderness/normal range of motion Neuro exam: Awake alert oriented 3/cranial nerves II through XII appear to be intact/sensation intact/moves all extremities/no abnormal movements Psychiatric evaluation: No depressed mood/normal affect Skin: No rash on exposed skin area/no erythema Extremity: Normal pulse/no pitting edema/no clubbing or cyanosis Endocrine/lymphatic: No obvious lymphadenopathy /no lymphedema Results & Data Vital Signs (Past 12 Hours) Vital Signs Temp Pulse Pulse Resp BP BP Pulse Ox 11/03/19 11:30 41 L 21 111/47 L 95 11/03/19 11:01 39 L 18 136/47 L 94 11/03/19 11:00 35 L 18 92 11/03/19 10:54 36 L 18 123/59 L 92 11/03/19 10:28 46 L 15 129/66 100 11/03/19 09:31 46 L 13 158/71 H 98 11/03/19 09:15 65 15 181/73 H 97 11/03/19 08:40 52 L 21 177/78 H 95 11/03/19 08:25 36.6 C 53 L 16 166/71 H 95 Code Status & VTE Plan Code Status Guille stated that she does have advanced directives but they do not know what it is, at this point her wishes is to be full code VTE Prophylaxis Plan VTE Prophylaxis will be ordered: Yes PG Care Time/CCT Total # of Minutes Spent Total Time Spent with Patient: 35 minutes total time spent is greater than 50% in coordination of care (as documented) at patient's floor/unit and/or counseling patient/family discussion of care with nursing staff (1) Altered mental status Altered mental status type: unspecified Qualified Code(s): R41.82 - Altered mental status, unspecified
[2019-11-03] MEDS ORDERED: DOCUSATE SODIUM 100 MG CAP PO PRN (13:44)
[2019-11-03] MEDS ORDERED: PERFLUTREN LIPID MICROSPHERE (DEFINITY) IV ONE (14:12)
[2019-11-03] MEDS: ASPIRIN 81 MG ECTAB PO SCH (14:26)
[2019-11-03] MEDS: AMLODIPINE BESYLATE 5 MG TAB PO SCH (14:27)
[2019-11-03 14:44] LABS: Creatine Kinase MB 2.2 ng/ml (0.5-3.6)
[2019-11-03] MEDS ORDERED: cefTRIAXone SODIUM 1,000 MG in DEXTROSE 5% 50 ML IV SCH (15:00)
--- NOTE | 2019-11-03 16:38 | Cardiology Consultation ---
Date of Consultation November 03, 2019 Assessment & Plan (1) Chest pain: The patient may have experienced an episode of angina pectoris are earlier today. Would simply trend her enzymes and continue medical management. (2) Sinus bradycardia: Agree with holding beta-herlinda today, and starting with reduced dose tomorrow depending on her baseline heart rate. No indication for permanent pacemaking at this time. (3) CAD (coronary artery disease): Diagnosed by an abnormal nuclear stress test back in September 2013 (4) HTN (hypertension): Adequate control on current medical regimen. History of Present Illness Attending Physician: Izabel Aponte MD History of Present Illness Mrs. Harrell is an 89-year-old female admitted earlier today because of a chest pain syndrome and sinus bradycardia. This consultations were to assist in her management. Of note, the patient followed with Dr. Crowe and Mr. Smitheler in our office. She has not been seen since November 2016. According to the chart, the patient contacted her daughter and grandson this morning complaining of a tightness across her shoulders with associated shortness of breath and headache. When family members arrived, the patient seemed unsteady on her feet when they tried to move her from bed to chair. Therefore, a call was made to 911. On arrival here, her initial troponin was undetectable and there were no acute EKG findings. However, she was noted to be bradycardic sometimes into the upper 30s. Her beta-herlinda dose was placed on hold and hospitalization was recommended. The patient has no recollection of her presenting complaints. In fact, she specifically denies discomfort across her back. The patient was given a presumptive diagnosis of coronary artery disease in September 2013 after a nuclear stress test showed inferior wall ischemia. The patient refused cardiac catheterization and conservative strategies have been followed since. Past medical and surgical history 1. Coronary artery disease-see above 2. Hypertension 3. Mild LVH 4. Hypercholesterolemia 5. Complete left bundle-branch block 6. Hypothyroidism 7. GERD 8. Depression 9. Polymyalgia rheumatica 10. DJD 11. History of breast surgery 12. Hysterectomy Social history , lives alone No tobacco or alcohol Family history Noncontributory Review of systems A 10 point review of systems was negative except for that described above. Allergies Allergy/AdvReac Type Severity Reaction Status Date / Time lisinopril Allergy Unknown RASH Verified 11/03/19 10:33 CANCER MED, UNSURE OF NAME Allergy Unknown Unknown Uncoded 11/03/19 10:33 Home Medications Home Medications Medication Instructions Recorded Confirmed Type fenofibrate nanocrystallized 145 mg PO DAILY 06/25/19 11/03/19 History levothyroxine 25 mcg PO DAILY 06/25/19 11/03/19 History metoprolol tartrate 50 mg PO BID 06/25/19 11/03/19 History pantoprazole 40 mg PO DAILY 06/25/19 11/03/19 History atorvastatin 40 mg tablet 40 mg PO HS #90 tab 08/22/19 11/03/19 Rx aspirin 81 mg tablet,delayed 81 mg PO DAILY tab 08/27/19 11/03/19 History release docusate sodium 100 mg tablet 100 mg PO DAILY PRN tab 08/27/19 11/03/19 History isosorbide mononitrate 60 mg 60 mg PO BID #60 tab 08/28/19 11/03/19 Rx tablet,extended release 24 hr oxybutynin chloride 5 mg tablet 5 mg PO BID #180 tab 09/15/19 11/03/19 Rx valsartan 40 mg tablet 40 mg PO DAILY #90 tab 09/15/19 11/03/19 Rx furosemide 20 mg tablet 20 mg PO DAILY #30 tab 10/12/19 11/03/19 Rx nitroglycerin 0.4 mg sublingual 0.4 mg SL Q5M PRN #30 tab 10/25/19 11/03/19 Rx tablet ciprofloxacin HCl 250 mg tablet 250 mg PO Q12H 5 Days #10 tab 10/27/19 11/03/19 Rx Patient History Medical History CAD (coronary artery disease) (Chronic) Colitis (Acute) Confusion (Acute) Dementia (Chronic) Edema, lower extremity (Acute) GI bleed (Acute) HTN (hypertension) (Chronic) Hyperlipidemia (Chronic) Hypothyroidism (Chronic) Osteoarthritis (Chronic) Shortness of breath (Acute) Surgical History No significant past surgical history Family History Other No pertinent family history Social History Preferred Language: [place] Communication Ability: Effective Adult Probation Officer Required: No Beliefs That Will Affect Care: None Current Living Situation: Alone Feels Safe at Home: Yes Smoking Status: Never smoker Hx Alcohol Use: No Physical Exam Physical Exam: In general this is a well-developed well-nourished elderly white female in no acute distress. HEENT exam is negative. Neck is supple with full carotid upstrokes. There are no carotid bruits. Jugular venous pressure is flat at 90. There is no thyromegaly. Cardiovascular exam reveals a regular rhythm with a 2/6 basal systolic ejection murmur. Lungs are clear without rales, rhonchi, or wheezes. Abdomen is soft and nontender without bruits. Extremities reveal intact radial artery pulses bilaterally. There is no peripheral edema. Results & Data Vital Signs (Past 12 Hours) Vital Signs Temp Pulse Pulse Pulse Resp BP BP 11/03/19 15:33 36.4 C L 56 L 16 154/60 H 11/03/19 11:54 36.6 C 45 L 14 178/76 H 11/03/19 11:30 41 L 21 111/47 L 11/03/19 11:01 39 L 18 136/47 L 11/03/19 11:00 35 L 18 11/03/19 10:54 36 L 18 123/59 L 11/03/19 10:28 46 L 15 129/66 11/03/19 09:31 46 L 13 158/71 H 11/03/19 09:15 65 15 181/73 H 11/03/19 08:40 52 L 21 177/78 H 11/03/19 08:25 36.6 C 53 L 16 166/71 H Pulse Ox 11/03/19 15:33 98 11/03/19 11:54 11/03/19 11:30 95 11/03/19 11:01 94 11/03/19 11:00 92 11/03/19 10:54 92 11/03/19 10:28 100 11/03/19 09:31 98 11/03/19 09:15 97 11/03/19 08:40 95 11/03/19 08:25 95 Laboratory Results Laboratory Results - last 24 hr 11/03/19 11/03/19 11/03/19 08:58 08:58 08:58 WBC 6.03 RBC 4.34 Hgb 12.9 Hct 38.8 MCV 89.4 MCH 29.7 MCHC 33.2 RDW Std Deviation 44.9 RDW Coeff of Kirstie 13.6 Plt Count 197 MPV 10.2 Immature Gran % (Auto) 0.2 Neut % (Auto) 52.7 Lymph % (Auto) 35.3 [place] % (Auto) 6.8 Eos % (Auto) 4.8 Baso % (Auto) 0.2 Immature Gran # (Auto) 0.01 Neut # (Auto) 3.18 Lymph # (Auto) 2.13 [place] # (Auto) 0.41 Eos # (Auto) 0.29 Baso # (Auto) 0.01 Sodium 142 Potassium 3.5 Chloride 111 H Carbon Dioxide 24 Anion Gap 7.0 BUN 39 H Creatinine 1.35 H Est Cr Clr Drug Dosing 22.2 Est GFR ( Amer) 40.2 Est GFR (Non-Af Amer) 34.7 BUN/Creatinine Ratio 28.5 H Glucose 107 H Lactate 1.8 Calcium 9.2 Magnesium 2.3 Total Bilirubin 0.5 AST 20 ALT 16 Alkaline Phosphatase 54 CK-MB (CK-2) Troponin I < 0.015 NT-Pro-B Natriuret Pep 392 Total Protein 6.9 Albumin 3.7 Globulin 3.2 Albumin/Globulin Ratio 1.2 Lipase 73 TSH 3.100 Urine Color Urine Appearance Urine pH Ur Specific [place] Urine Protein Urine Glucose (UA) Urine Ketones Urine Blood Urine Nitrite Urine Bilirubin Urine Urobilinogen Ur Leukocyte Esterase Urine WBC (Auto) Urine RBC (Auto) U Hyaline Cast (Auto) U Epithel Cells (Auto) Urine Bacteria (Auto) 11/03/19 11/03/19 09:09 13:49 WBC RBC Hgb Hct MCV MCH MCHC RDW Std Deviation RDW Coeff of Kirstie Plt Count MPV Immature Gran % (Auto) Neut % (Auto) Lymph % (Auto) [place] % (Auto) Eos % (Auto) Baso % (Auto) Immature Gran # (Auto) Neut # (Auto) Lymph # (Auto) [place] # (Auto) Eos # (Auto) Baso # (Auto) Sodium Potassium Chloride Carbon Dioxide Anion Gap BUN Creatinine Est Cr Clr Drug Dosing Est GFR ( Amer) Est GFR (Non-Af Amer) BUN/Creatinine Ratio Glucose Lactate Calcium Magnesium Total Bilirubin AST ALT Alkaline Phosphatase CK-MB (CK-2) 2.2 Troponin I NT-Pro-B Natriuret Pep Total Protein Albumin Globulin Albumin/Globulin Ratio Lipase TSH Urine Color Yellow Urine Appearance Clear Urine pH 6.5 Ur Specific [place] 1.009 Urine Protein Negative Urine Glucose (UA) Negative Urine Ketones Negative Urine Blood Trace H Urine Nitrite Negative Urine Bilirubin Negative Urine Urobilinogen Negative Ur Leukocyte Esterase Trace H Urine WBC (Auto) 10-30 H Urine RBC (Auto) 5-10 H U Hyaline Cast (Auto) 0 U Epithel Cells (Auto) 10-20 H Urine Bacteria (Auto) 2+ H Diagnostic Findings EKG notes sinus bradycardia with a complete left bundle-branch block. PG Care Time/CCT Total # of Minutes Spent Total Time Spent with Patient: Total time spent is greater than 50% in coordination of care (as documented) at patient's floor/unit and/or counseling patient:
[2019-11-03] MEDS: LACTOBACILLUS ACIDOPHILUS 1 GM PACK PO SCH (16:54)
[2019-11-03] MEDS: OXYBUTYNIN CHLORIDE 5 MG TAB PO SCH (21:27)
[2019-11-03] MEDS: ATORVASTATIN 40 MG TAB PO SCH (21:27)
[2019-11-03] MEDS: ISOSORBIDE MONO EXTENDED REL 60 MG TABCR PO SCH (21:27)
[2019-11-03] MEDS: HEPARIN SOD 5,000 UNIT/0.5 ML VIAL SQ SCH (21:28)
[2019-11-04] MEDS: LEVOTHYROXINE SODIUM 25 MCG TABLET PO SCH (06:02)
[2019-11-04] MEDS: FENOFIBRATE NANOCRYSTALLIZED 145 MG TABLET PO SCH (08:58)
[2019-11-04] MEDS: PANTOprazole 40 MG TAB PO SCH (08:58)
[2019-11-04] MEDS: VALSARTAN 80 MG TAB PO SCH (08:59)
[2019-11-04] MEDS: METOPROLOL TARTRATE 50 MG TAB PO SCH ×2 (08:59→20:17)
[2019-11-04] MEDS: ASPIRIN 81 MG ECTAB PO SCH (09:00)
[2019-11-04] MEDS: OXYBUTYNIN CHLORIDE 5 MG TAB PO SCH ×2 (09:00→20:17)
[2019-11-04] MEDS: ISOSORBIDE MONO EXTENDED REL 60 MG TABCR PO SCH ×2 (09:00→20:17)
[2019-11-04] MEDS: AMLODIPINE BESYLATE 5 MG TAB PO SCH (09:00)
[2019-11-04] MEDS: LACTOBACILLUS ACIDOPHILUS 1 GM PACK PO SCH ×3 (09:00→16:46)
[2019-11-04] MEDS: HEPARIN SOD 5,000 UNIT/0.5 ML VIAL SQ SCH ×2 (09:01→20:17)
--- NOTE | 2019-11-04 11:38 | Cardiology Progress Note ---
Date of Service November 04, 2019 Assessment & Plan (1) Chest pain: Fortunately there has been no recurrence of her chest discomfort. Two troponin levels are undetectable. Would continue with medical management. (2) Sinus bradycardia: The patient's resting heart rate is now up to the 60s. Agree with restarting metoprolol tartrate at half of her prior dose. (3) CAD (coronary artery disease): Abnormal nuclear stress test back in September 2013. The patient refused cardiac catheterization. (4) HTN (hypertension): Adequate control on current medical regimen. Subjective The patient was seen with Dr. Bliss this morning. The patient is seated in the bedside chair without complaints of chest pain or dyspnea. However, she explains that she is ready to . Physical Exam Physical Exam: In general this is a well-developed well-nourished elderly white female in no acute distress. HEENT exam is negative. Neck is supple with full carotid upstrokes. There are no carotid bruits. Jugular venous pressure is flat at 90. There is no thyromegaly. Cardiovascular exam reveals a regular rhythm with a 2/6 basal systolic ejection murmur. Lungs are clear without rales, rhonchi, or wheezes. Abdomen is soft and nontender without bruits. Extremities reveal intact radial artery pulses bilaterally. There is no peripheral edema. Results & Data Vital Signs (Past 12 Hours) Vital Signs Temp Pulse Pulse Resp BP Pulse Ox 11/04/19 08:00 52 L 11/04/19 07:53 36.9 C 60 18 146/68 H 95 11/04/19 03:18 36.4 C L 51 L 18 135/66 96 11/03/19 23:47 36.8 C 63 20 123/99 94 Laboratory Results Two troponin I levels are undetectable at less than 0.015. Diagnostic Findings monitoring analyst is benign. PG Care Time/CCT Total # of Minutes Spent Total Time Spent with Patient: Total time spent is greater than 50% in coordination of care (as documented) at patient's floor/unit and/or counseling p atient:
--- NOTE | 2019-11-04 16:48 | Hospitalist Progress Note ---
Date of Service November 04, 2019 Assessment & Plan (1) Symptomatic bradycardia: Improved with reduced beta-herlinda. Likely her conduction system is starting to wear out, but she is not showing us any indication of needing a pacemaker at this time. Continue to follow on reduced dose of metoprolol, may need to reduce further depending on heart rate or symptoms, but so far the 12.5 mg twice daily appears to be about right. Supportive care, PT/OT eval and treat. Heparin subcu for DVT prophylaxis (2) Altered mental status: With hindsight appears to have been metabolic encephalopathy related to the bradycardia. After further review no urinary tract infection. (3) Hyperlipidemia: Continue home meds (4) Hypothyroidism: TSH was checked and was within normal limits (5) CAD (coronary artery disease): Seems to be asymptomatic (6) Chest pain: No complaints of this today (7) UTI (urinary tract infection): Now that she is no longer confused, she has no urinary symptoms, her urine culture is not showing any overt growth, so likely she did not have a UTI at all this time. Stop antibiotics. (8) Discharge planning issues: Continue to follow on telemetry for now, continue to titrate beta-herlinda, await PT and OT input, but hopefully the goal will be home once she shows good stability of her heart rate control. Discussed with her daughter over the phone, updated and answered all questions to the best my ability. (9) Depression: Does not appear to be actively suicidal, family aware and supportive. Given her age I would be hesitant to start a new medicine such as an SSRI in the hospital although this could be deferred to her PCP depending on how she is doing. Subjective Patient seen at the same time as Dr. Jenkins. Patient notes no current complaints, but does note "I hope I kick it soon" when asked what she meant by this she notes that she just wishes she would but does not express any active suicidal intent. (Later discussion with her daughter this unfortunately seems to be a common theme with her since her passed about 3 years ago, but her daughter does not believe she would take any active suicidal steps. No weak no lightheaded no dizzy. No dysuria Review of Systems Review of Systems: All systems reviewed & are unremarkable except as noted in HPI & below Physical Exam Physical Exam: General she is awake and alert pleasant no distress, although she does a bit of a flat affect. HEENT normocephalic atraumatic mucous membranes are moist. Breathing unlabored no accessory muscle use good effort. Skin shows no rashes no pallor or icterus. No focal neuro deficits. Results & Data Vital Signs (Past 12 Hours) Vital Signs Temp Pulse Pulse Resp BP Pulse Ox 11/04/19 15:52 98.4 F 55 L 16 133/49 L 93 11/04/19 11:52 98.2 F 67 18 125/57 L 95 11/04/19 08:00 52 L 11/04/19 07:53 98.4 F 60 18 146/68 H 95 PG Care Time/CCT Total # of Minutes Spent Total Time Spent with Patient: Total time spent is greater than 50% in coordination of care (as documented) at patient's floor/unit and/or counseling patient: (1) Altered mental status Altered mental status type: unspecified Qualified Code(s): R41.82 - Altered mental status, unspecified
[2019-11-04] MEDS: ATORVASTATIN 40 MG TAB PO SCH (20:17)
[2019-11-05] MEDS: LEVOTHYROXINE SODIUM 25 MCG TABLET PO SCH (06:11)
[2019-11-05] MEDS: ASPIRIN 81 MG ECTAB PO SCH (08:12)
[2019-11-05] MEDS: ISOSORBIDE MONO EXTENDED REL 60 MG TABCR PO SCH ×2 (08:13→20:54)
[2019-11-05] MEDS: METOPROLOL TARTRATE 50 MG TAB PO SCH ×2 (08:13→20:54)
[2019-11-05] MEDS: OXYBUTYNIN CHLORIDE 5 MG TAB PO SCH ×2 (08:13→20:54)
[2019-11-05] MEDS: VALSARTAN 80 MG TAB PO SCH (08:13)
[2019-11-05] MEDS: PANTOprazole 40 MG TAB PO SCH (08:13)
[2019-11-05] MEDS: LACTOBACILLUS ACIDOPHILUS 1 GM PACK PO SCH ×3 (08:13→16:29)
[2019-11-05] MEDS: AMLODIPINE BESYLATE 5 MG TAB PO SCH (08:13)
[2019-11-05] MEDS: HEPARIN SOD 5,000 UNIT/0.5 ML VIAL SQ SCH ×2 (08:14→20:54)
[2019-11-05] MEDS: FENOFIBRATE NANOCRYSTALLIZED 145 MG TABLET PO SCH (08:14)
--- NOTE | 2019-11-05 15:47 | Cardiology Progress Note ---
Date of Service November 05, 2019 Assessment & Plan (1) Chest pain: Fortunately, no recurrence of her chest discomfort. Two troponin levels undetectable. Would continue with medical management. (2) Sinus bradycardia: The patient's resting heart rate has increased. She is tolerating low- dose metoprolol tartrate without difficulty. (3) CAD (coronary artery disease): Abnormal nuclear stress test back in September 2013. The patient refused cardiac catheterization. (4) HTN (hypertension): Adequate control on current medical regimen. Subjective The patient is resting comfortably bedside chair without complaints of chest pain or dyspnea. Physical Exam Physical Exam: In general this is a well-developed well-nourished elderly white female in no acute distress. HEENT exam is negative. Neck is supple with full carotid upstrokes. There are no carotid bruits. Jugular venous pressure is flat at 90. There is no thyromegaly. Cardiovascular exam reveals a regular rhythm with a 2/6 basal systolic ejection murmur. Lungs are clear without rales, rhonchi, or wheezes. Abdomen is soft and nontender without bruits. Extremities reveal intact radial artery pulses bilaterally. There is no peripheral edema. Results & Data Vital Signs (Past 12 Hours) Vital Signs Temp Pulse Pulse Resp BP Pulse Ox 11/05/19 15:40 36.8 C 56 L 16 138/56 L 95 11/05/19 15:11 54 L 11/05/19 12:14 36.8 C 60 18 114/52 L 96 11/05/19 08:00 56 L 11/05/19 07:49 36.8 C 57 L 18 141/80 H 96 11/05/19 04:25 36.6 C 53 L 16 127/58 L 95 Diagnostic Findings monitoring coordinator notes sinus rhythm with a heart rate varying 50-70 beats per minute. There was one 12 beat run of nonsustained ventricular tachycardia. PG Care Time/CCT Total # of Minutes Spent Total Time Spent with Patient: Total time spent is greater than 50% in coordination of care (as documented) at patient's floor/unit and/or counseling patient:
--- NOTE | 2019-11-05 16:33 | Hospitalist Progress Note ---
Date of Service November 05, 2019 Assessment & Plan (1) Symptomatic bradycardia: Improved with reduced beta-herlinda. Likely her conduction system is starting to wear out, but she is not showing us any indication of needing a pacemaker at this time. Doing well on lower dose - although if she were to show orthostasis/inappropriate weakness, could consider change to carvedilol @ 3.125mg - thus far just continue current lower dose metoprolol. will need ongoing outpt f/u once discharged. (2) Altered mental status: With hindsight appears to have been metabolic encephalopathy related to the bradycardia. After further review no urinary tract infection. Improved. (3) Hyperlipidemia: Continue home meds (4) Hypothyroidism: TSH was checked and was within normal limits (5) CAD (coronary artery disease): asymptomatic. continue current meds. (6) UTI (urinary tract infection): Now that she is no longer confused, she has no urinary symptoms, her urine culture is not showing any overt growth, so likely she did not have a UTI at all this time. (7) Discharge planning issues: Continue to follow on telemetry for now given borderline bradycardia even on low dose metoprolol. continue to [facility] PT and OT input, but hopefully the goal will be home once she shows good stability of her heart rate control. right now still too weak to be home alone. does not want to go to rehab so hopefully she'll show improvement - but if she's still borderline and not showing improvement then might need to consider rehab referral. (8) Depression: Does not appear to be actively suicidal, family aware and supportive. Given her age I would be hesitant to start a new medicine such as an SSRI in the hospital although this could be deferred to her PCP depending on how she is doing. does seem much brighter today with family present. (9) DVT prophylaxis: heparin SQ Subjective feeling ok. not weak/lightheaded/dizzy. hasn't really walked around much today though. last PT input was appearing too weak to go without 24hr supervision, family present and doesn't feel like pt strong enough to go home yet (she does live alone, they just check in/help look after her). updated to the best of my ability and to pt/family satisfaction. Review of Systems 2 Review of Systems: All systems reviewed & are unremarkable except as noted in HPI & below Physical Exam Physical Exam: gen aaox3 pleasant nad heent nc at mmm cardio noted to be sl rosalia breathing unlabored no accessory muscles good effort skin no rashes no pallor or icterus, no focal neuro deficits. Results & Data Vital Signs (Past 12 Hours) Vital Signs Temp Pulse Pulse Resp BP Pulse Ox 11/05/19 15:40 98.2 F 56 L 16 138/56 L 95 11/05/19 15:11 54 L 11/05/19 12:14 98.2 F 60 18 114/52 L 96 11/05/19 08:00 56 L 11/05/19 07:49 98.2 F 57 L 18 141/80 H 96 PG Care Time/CCT Total # of Minutes Spent Total Time Spent with Patient: Total time spent is greater than 50% in coordination of care (as documented) at patient's floor/unit and/or counseling patient: (1) Altered mental status Altered mental status type: unspecified Qualified Code(s): R41.82 - Altered mental status, unspecified
[2019-11-05] MEDS: ATORVASTATIN 40 MG TAB PO SCH (20:53)
[2019-11-06] MEDS: LEVOTHYROXINE SODIUM 25 MCG TABLET PO SCH (04:14)
[2019-11-06] MEDS: LACTOBACILLUS ACIDOPHILUS 1 GM PACK PO SCH ×3 (08:20→17:19)
[2019-11-06] MEDS: ISOSORBIDE MONO EXTENDED REL 60 MG TABCR PO SCH (08:20)
[2019-11-06] MEDS: FENOFIBRATE NANOCRYSTALLIZED 145 MG TABLET PO SCH (08:20)
[2019-11-06] MEDS: AMLODIPINE BESYLATE 5 MG TAB PO SCH (08:20)
[2019-11-06] MEDS: OXYBUTYNIN CHLORIDE 5 MG TAB PO SCH (08:20)
[2019-11-06] MEDS: PANTOprazole 40 MG TAB PO SCH (08:20)
[2019-11-06] MEDS: ASPIRIN 81 MG ECTAB PO SCH (08:20)
[2019-11-06] MEDS: HEPARIN SOD 5,000 UNIT/0.5 ML VIAL SQ SCH (08:21)
[2019-11-06] MEDS: VALSARTAN 80 MG TAB PO SCH (08:21)
[2019-11-06] MEDS: METOPROLOL TARTRATE 50 MG TAB PO SCH (08:23)
--- NOTE | 2019-11-06 10:49 | Student Report ---
KARL[facility] Med Student H&P Date of Service Date of Service: November 06, 2019 HPI HPI: 65 year old female with a history of recent viral meningitis, post-herpetic neuralgia, and shingles presented to the ED last night after her family called her and discovered her lying on the floor at home in an altered mental state. Her home heating source, a wood stove, was found to be extinguished. Patient was unable to describe whether she had fallen or how long she had been on the floor. Per her ER note, her family last had contact with her 6 days prior to her presentation. Patient was admitted at [facility] for viral meningitis 1.5 months ago
--- NOTE | 2019-11-06 10:58 | Medical Student Progress Note ---
Date of Service November 06, 2019 Assessment & Plan (1) Symptomatic bradycardia: Tiffanie is an 89yo F with a PMHx of depression, OA, dementia, hypothyroidism, CAD, and HLD who presented with chest tightness/dizziness and who has been admitted/managed for symptomatic bradycardia. Symptomatic Bradycardia, 2/2 sick sinus syndrome vs supratherapeutic Bblocker dosing, improved - NON PROFIT DIRECTOR metoprolol tartrate 50mg BID decreased to 12.5mg PO BID 2/2 bradycardiac. - Symptoms improved with BB decrease. - Cardiology was consulted. There is no indication of needing a pacemaker. If pt continues to be symptomatic may consider carvedilol 3.125mg. She will f/u with cardiology as outpatient - EKG shows LBBB consistent with prior ECGs. Moderate LVH. No afib, aflutter, or heart block appreciated. - She may have early sick sinus syndrome, followup with cardiology as above Concern for UTI, resolved - Concern on admission for uroseptic encephalopathy, UC shows low counts of lactobacillus which is not consistent with UTI. - No urinary symptoms. - AMS improved as above - Received empiric vanc-zosyn --> rocephin on admission. No further antibiotics indicated Depression - Pt endorses a history of depression with passive SI, no active SI or plan - She has support with her family who is supportive, but continues to struggle with depression. She will require further followup. - Defer starting an SSRI at this time, she should be seen by an outpatient provider who will be able to have regular followup with her. - No history of manic/bipolar Sx - She feels she is safe and able to reach out to her family/providers if sx worsen AMS - Patient is improved. - Initial concern for UTI, culture with small counts of lactobacillus. - Acute AMS likely 2/2 metabolic encephalopathy related to her bradycardia now improved. Hyperlipidemia - Continue NON PROFIT DIRECTOR Atorvastatin 40mg daily - Continue NON PROFIT DIRECTOR fenofibrate 145mg PO daily Hypothyroidism - TSH 3.1 on admission, wnl - Continue NON PROFIT DIRECTOR levothyroxine 25mcg daily CAD/HTN - Clinically asymptomatic, no chest pain or shortness of breath today. Low suspicion for ACS. - Continue NON PROFIT DIRECTOR atorvastatin as above. - Continue NON PROFIT DIRECTOR amlodipine 5mg PO daily, ASA 81 mg daily, isosorbide mononitrate 60mg PO BID - Metoprolol as above - Continue valsartan 40mg PO daily - not symptomatic now. Continue home meds and follow-up with PCP - Mildly hypertensive this morning, 125/59 on recheck. Defer additional antihypertensive at this time. May consider low dose of adjunct thiazide if pressures remain high. DVT Prophylaxis - Heparin 5,000u SQ Q12H FEN/GI: Regular Diet Code Status: Full Code Disposition: Anticipate discharge to [facility] per PT/OT recommendations Present on Admission?: Yes (2) Altered mental status: Altered mental status type: unspecified Qualified Code(s): R41.82 - Altered mental status, unspecified Present on Admission?: Yes (3) Hyperlipidemia: Present on Admission?: Yes (4) Hypothyroidism: Present on Admission?: Yes (5) CAD (coronary artery disease): Present on Admission?: Yes (6) UTI (urinary tract infection): Present on Admission?: Yes (7) Discharge planning issues: Present on Admission?: Yes (8) Depression: Present on Admission?: Yes (9) DVT prophylaxis: Present on Admission?: Yes Subjective Patient says she is feeling back to baseline today. She was able to ambulate with a walker. She denies weakness, dizziness, lightheadedness, SOB, orthostasis, and chest pain. She denies active SI, endorses history of depression with intermittent passive SI. 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 She feels she is safe at this time, and would be able to reach out to her provider and family if her depression worsened. Denies AH/VH/CH Review of Systems Review of Systems: All systems reviewed & are unremarkable except as noted in HPI & below Physical Exam Constitutional: WD/WN, vitals as above no acute distress Eyes: PERRL, conjunctivae normal, anicteric sclerae ENMT: external ear and nose normal, oropharynx normal Neck: normal visual inspection Respiratory: normal respiratory effort, lungs clear to auscultation normal respiratory effort Auscultation: no crackles, no rales, no rhonchi and no wheezes Cardiovascular: RRR, no murmur, no edema Gastrointestinal (Abdomen): normal bowel sounds, soft, nontender, no hepatosplenomegaly Psychiatric: A+Ox3, euthymic affect Results & Data Vital Signs (Past 12 Hours) Vital Signs Temp Pulse Pulse Resp BP Pulse Ox 11/06/19 10:30 94 11/06/19 07:27 97.9 F 60 18 150/70 H 95 11/06/19 04:02 98.4 F 68 20 162/57 H 95 11/05/19 23:30 97.3 F L 71 18 167/68 H 96
--- NOTE | 2019-11-06 14:04 | Emergency Department Note ---
Entered by Jay Fritz acting as a scribe for Pati Delatorre DO History of Present Illness General Chief complaint: Confusion Stated complaint: Confusion, Recent UTI Time Seen by Provider: 11/03/19 08:24 Source: EMS History of Present Illness Provider complaint: Altered mental status Onset (ago): hour(s) (This morning) Location: head Radiation: non-radiation Severity: similar to prior episodes Pain Consistency: + now resolved Exacerbated By: + eating Associated symptoms: + confusion and + chest pain The patient is an 89 year old female who presents to the Emergency Room via EMS for worsening confusion that was noticed today by her family. Per her family at bedside who works local EMS, the patient called stating she was not feeling well and when he arrived at her house she was not at her baseline having increased confusion and weakness. He states that the patient did not have any evidence of a fall but he did noticed she was unable to keep her eyes open or head up. Per EMS, the patient did not take her medications yesterday but the family at bedside states he gave the patient her morning medication today and they seemed to slightly improve her condition. Per EMS, the patient was complaining of chest pain when they arrived, stating she feels it in her neck and it occurs after eating certain foods. Both EMS and the family confirm that the patient was recently treated for a UTI, finishing her antibiotic yesterday. The family reports that the patient has had increased confusion over the past two weeks, however a TIA was ruled out so it was attributed to her UTI. He adds that the patient does typically get confused when she develops UTIs. Currently the pat iecortez is asymptomatic. She does live home alone but her son lives across the street. Per family the patient does have some underlying dementia. Per EMS, the patient's BSG was 108 en route. HPI is limited secondary to patient's altered mental status. Home Medications Home Medications Medication Instructions Recorded Confirmed Type fenofibrate nanocrystallized 145 mg PO DAILY 06/25/19 11/03/19 History levothyroxine 25 mcg PO DAILY 06/25/19 11/03/19 History metoprolol tartrate 50 mg PO BID 06/25/19 11/03/19 History pantoprazole 40 mg PO DAILY 06/25/19 11/03/19 History atorvastatin 40 mg tablet 40 mg PO HS #90 tab 08/22/19 11/03/19 Rx aspirin 81 mg tablet,delayed 81 mg PO DAILY tab 08/27/19 11/03/19 History release docusate sodium 100 mg tablet 100 mg PO DAILY PRN tab 08/27/19 11/03/19 History isosorbide mononitrate 60 mg 60 mg PO BID #60 tab 08/28/19 11/03/19 Rx tablet,extended release 24 hr oxybutynin chloride 5 mg tablet 5 mg PO BID #180 tab 09/15/19 11/03/19 Rx valsartan 40 mg tablet 40 mg PO DAILY #90 tab 09/15/19 11/03/19 Rx furosemide 20 mg tablet 20 mg PO DAILY #30 tab 10/12/19 11/03/19 Rx nitroglycerin 0.4 mg sublingual 0.4 mg SL Q5M PRN #30 tab 10/25/19 11/03/19 Rx tablet ciprofloxacin HCl 250 mg tablet 250 mg PO Q12H 5 Days #10 tab 10/27/19 11/03/19 Rx metoprolol tartrate 12.5 mg PO BID 30 Days #30 tab 11/06/19 Rx Allergies Allergy/AdvReac Type Severity Reaction Status Date / Time lisinopril Allergy Unknown RASH Verified 11/03/19 10:33 CANCER MED, UNSURE OF NAME Allergy Unknown Unknown Uncoded 11/03/19 10:33 Past Med/Surg History Medical History (Updated 11/05/19 @ 16:33 by Keshav Bliss DO) CAD (coronary artery disease) (Chronic) Colitis (Acute) Confusion (Acute) Dementia (Chronic) Depression Edema, lower extremity (Acute) GI bleed (Acute) HTN (hypertension) (Chronic) Hyperlipidemia (Chronic) Hypothyroidism (Chronic) Osteoarthritis (Chronic) Shortness of breath (Acute) Surgical History No significant past surgical history Family History Other No pertinent family history Social History Preferred Language: [place] Communication Ability: Effective Belt Measurer Required: No Beliefs That Will Affect Care: None Current Living Situation: Alone Feels Safe at Home: Yes Smoking Status: Never smoker Hx Alcohol Use: No Review of Systems See HPI for pertinent positives & negatives. Other (Limited secondary to altered mental status ) Physical Exam Vital Signs Vital Signs - 24 hr 11/03/19 08:25 11/03/19 08:40 11/03/19 09:15 Temperature 97.9 F Temperature Source Oral Pulse Rate 53 L Pulse Rate [Apical] 52 L 65 Pulse Rate from SpO2 Sensor Pulse Rhythm Regular Pulse Rhythm [Apical] Regular Respiratory Rate 16 21 15 Respiratory Effort / Characteristics Non-Labored Non-Labored Non-Labored Respiratory Depth Normal Normal Normal Respiratory Pattern Regular Blood Pressure 166/71 H Blood Pressure [Right Arm] 177/78 H 181/73 H Blood Pressure Mean 102 Blood Pressure Mean [Right Arm] 111 109 Blood Pressure Position Lying Blood Pressure Position [Right Arm] Lying Sitting Pulse Oximetry 95 95 97 Oxygen Delivery Method Room Air Room Air Room Air Sepsis Recent Fever Within 48 Hours No Sepsis New/Unexplained Change in Mental Status No Sepsis Action Taken by Nursing No Action Required 11/03/19 09:31 11/03/19 10:28 11/03/19 10:54 Temperature Temperature Source Pulse Rate Pulse Rate [Apical] 46 L 46 L 36 L Pulse Rate from SpO2 Sensor Pulse Rhythm Pulse Rhythm [Apical] Regular Regular Regular Respiratory Rate 13 15 18 Respiratory Effort / Characteristics Non-Labored Spontaneous Non-Labored Non-Labored Respiratory Depth Normal Normal Normal Respiratory Pattern Regular Regular Regular Blood Pressure Blood Pressure [Right Arm] 158/71 H 129/66 123/59 L Blood Pressure Mean Blood Pressure Mean [Right Arm] 100 87 80 Blood Pressure Position Blood Pressure Position [Right Arm] Lying Lying Lying Pulse Oximetry 98 100 92 Oxygen Delivery Method Room Air Room Air Room Air Sepsis Recent Fever Within 48 Hours Sepsis New/Unexplained Change in Mental Status Sepsis Action Taken by Nursing 11/03/19 11:00 11/03/19 11:01 11/03/19 11:30 Temperature Temperature Source Pulse Rate 35 L 39 L 41 L Pulse Rate [Apical] Pulse Rate from SpO2 Sensor 34 L 38 L 40 L Pulse Rhythm Pulse Rhythm [Apical] Respiratory Rate 18 18 21 Respiratory Effort / Characteristics Respiratory Depth Respiratory Pattern Blood Pressure 136/47 L 111/47 L Blood Pressure [Right Arm] Blood Pressure Mean 56 57 Blood Pressure Mean [Right Arm] Blood Pressure Position Blood Pressure Position [Right Arm] Pulse Oximetry 92 94 95 Oxygen Delivery Method Sepsis Recent Fever Within 48 Hours Sepsis New/Unexplained Change in Mental Status Sepsis Action Taken by Nursing GENERAL: alert, well appearing, well nourished, no distress, non-toxic EYE EXAM: normal conjunctiva, PERRL and EOM's grossly intact OROPHARYNX: no exudate, no erythema, lips, buccal mucosa, and tongue normal and mucous membranes are moist NECK: supple, no nuchal rigidity, no adenopathy, non-tender LUNGS: Clear to auscultation. Normal chest wall mechanics, no w/r/r HEART: no murmurs, S1 normal and S2 normal ABDOMEN: abdomen soft, non-tender, normo-active bowel sounds, no masses, no rebound or guarding. BACK: Back is symmetrical on inspection and there is no deformity, no midline tenderness, no CVA tenderness. SKIN: no rashes and no bruising UPPER EXTREMITIES: upper extremities are grossly normal. FROM, nml pulses b/l. LOWER EXTREMITIES: No pitting edema. FROM, nml pulses b/l. NEURO EXAM: Pleasantly confused, cranial nerves II-XII grossly intact, normal speech, no gross weakness of arms, no gross weakness of legs. Course Course 824: Past medical records reviewed. The patient was evaluated in room B06, and a complete history and physical examination were performed. 1142: I reevaluated the patient and she is resting comfortably in bed with no specific complaints besides generalized fatigue. It has been noted and docu mented by nursing staff that on multiple occasions pt's HR dropped to mid 30's. Given recent symptoms reported by family and pt's reported fatigue, I feel pt may have symptomatic bradycardia. We discussed the results as well as the treatment plan which she is agreeable to. 1205: I spoke to Dr. Olmos [facility] Hospitalist about the patient's case. He agreed to accept the patient for further evaluation. Consultations Consultation #1: I spoke to Dr. Olmos [facility] Hospitalist about the patient's case. He agreed to accept the patient for further evaluation. Time: 12:05 Administered Medications [facility] [place] Stop: 12/03/19 12:44 Last Admin: 11/06/19 08:20 Dose: 5 mg Documented by: [id number] Admin: 11/05/19 08:13 Dose: 5 mg Documented by: [id number] Admin: 11/04/19 09:00 Dose: 5 mg Documented by: [id number] Admin: 11/03/19 14:27 Dose: 5 mg Documented by: [id number] Aspirin (Ecotrin Ectab) 81 mg PO QAM [facility] Stop: 12/05/19 08:59 Last Admin: 11/06/19 08:20 Dose: 81 mg Documented by: [id number] Admin: 11/05/19 08:12 Dose: 81 mg Documented by: [id number] Atorvastatin Calcium (Lipitor) 40 mg PO HS [facility] Stop: 12/03/19 20:59 Last Admin: 11/05/19 20:53 Dose: 40 mg Documented by: [id number] Admin: 11/04/19 20:17 Dose: 40 mg Documented by: [id number] Admin: 11/03/19 21:27 Dose: 40 mg Documented by: [id number] Fenofibrate (Tricor) 145 mg PO DAILY [facility] Stop: 12/04/19 08:59 Last Admin: 11/06/19 08:20 Dose: 145 mg Documented by: [id number] Admin: 11/05/19 08:14 Dose: 145 mg Documented by: [id number] Admin: 11/04/19 08:58 Dose: 145 mg Documented by: [id number] Heparin Sodium (Porcine) (Heparin Sodium (Porcine)) 5,000 units SQ Q12 [facility] Stop: 12/03/19 20:59 Last Admin: 11/06/19 08:21 Dose: 5,000 units Documented by: [id number] Cosigned by: [id number] Admin: 11/05/19 20:54 Dose: Not Given Documented by: [id number] Admin: 11/05/19 08:14 Dose: Not Given Documented by: [id number] Admin: 11/04/19 20:17 Dose: Not Given Documented by: [id number] Admin: 11/04/19 09:01 Dose: Not Given Documented by: [id number] Admin: 11/03/19 21:28 Dose: Not Given Documented by: [id number] Isosorbide Mononitrate (Imdur Extended Rel) 60 mg PO BID [facility] Stop: 12/03/19 20:59 Last Admin: 11/06/19 08:20 Dose: 60 mg Documented by: [id number] Admin: 11/05/19 20:54 Dose: 60 mg Documented by: [id number] Admin: 11/05/19 08:13 Dose: 60 mg Documented by: [id number] Admin: 11/04/19 20:17 Dose: 60 mg Documented by: [id number] Admin: 11/04/19 09:00 Dose: 60 mg Documented by: [id number] Admin: 11/03/19 21:27 Dose: 60 mg Documented by: [id number] Lactobacillus Acidophilus (Floranex Granules/Powder Packet) 1 gm PO TIDM [facility] Stop: 12/03/19 16:59 Last Admin: 11/06/19 08:20 Dose: 1 gm Documented by: [id number] Admin: 11/05/19 16:29 Dose: 1 gm Documented by: [id number] Admin: 11/05/19 12:02 Dose: 1 gm Documented by: [id number] Admin: 11/05/19 08:13 Dose: 1 gm Documented by: [id number] Admin: 11/04/19 16:46 Dose: 1 gm Documented by: [id number] Admin: 11/04/19 12:22 Dose: 1 gm Documented by: [id number] Admin: 11/04/19 09:00 Dose: 1 gm Documented by: [id number] Admin: 11/03/19 16:54 Dose: 1 gm Documented by: [id number] Levothyroxine Sodium (Synthroid) 25 mcg PO DAILYBB [facility] Stop: 12/04/19 06:29 Last Admin: 11/06/19 04:14 Dose: 25 mcg Documented by: [id number] Admin: 11/05/19 06:11 Dose: 25 mcg Documented by: [id number] Admin: 11/04/19 06:02 Dose: 25 mcg Documented by: [id number] Oxybutynin Chloride (Ditropan) 5 mg PO BID [facility] Stop: 12/03/19 20:59 Last Admin: 11/06/19 08:20 Dose: 5 mg Documented by: [id number] Admin: 11/05/19 20:54 Dose: 5 mg Documented by: [id number] Admin: 11/05/19 08:13 Dose: 5 mg Documented by: [id number] Admin: 11/04/19 20:17 Dose: 5 mg Documented by: [id number] Admin: 11/04/19 09:00 Dose: 5 mg Documented by: [id number] Admin: 11/03/19 21:27 Dose: 5 mg Documented by: [id number] Pantoprazole Sodium (Protonix) 40 mg PO DAILY [facility] Stop: 01/13/20 08:59 Last Admin: 11/06/19 08:20 Dose: 40 mg Documented by: [id number] Admin: 11/05/19 08:13 Dose: 40 mg Documented by: [id number] Admin: 11/04/19 08:58 Dose: 40 mg Documented by: [id number] Valsartan (Diovan) 40 mg PO DAILY [facility] Stop: 12/04/19 08:59 Last Admin: 11/06/19 08:21 Dose: 40 mg Documented by: [id number] Admin: 11/05/19 08:13 Dose: 40 mg Documented by: [id number] Admin: 11/04/19 08:59 Dose: 40 mg Documented by: [id number] Discontinued Medications Aspirin (Ecotrin Ectab) 162 mg PO QAM [facility] Stop: 12/03/19 13:59 Last Admin: 11/04/19 09:00 Dose: 162 mg Documented by: [id number] Admin: 11/03/19 14:26 Dose: 162 mg Documented by: [id number] Sodium Chloride (Nss 1000ml) 1,000 mls @ 250 mls/hr IV .Q4H [facility] Stop: 12/03/19 08:44 Last Admin: 11/03/19 16:52 Dose: Not Given Documented by: [id number] Infusion: 11/03/19 13:38 Dose: 0 mls/hr Documented by: [id number] Admin: 11/03/19 09:10 Dose: 250 mls/hr Documented by: [id number] Sodium Chloride (Nss 1000ml) 1,000 mls @ 50 mls/hr IV .Q20H [facility] Stop: 11/04/19 08:44 Last Infusion: 11/04/19 10:44 Dose: 0 mls/hr Documented by: [id number] Admin: 11/03/19 14:18 Dose: 50 mls/hr Documented by: [id number] Ceftriaxone Sodium 1,000 mg/ (Dextrose) 50 mls @ 100 mls/hr IV Q24H [facility]; Protocol Stop: 11/13/19 08:59 Last Infusion: 11/03/19 15:13 Dose: 0 mls/hr Documented by: [id number] Admin: 11/03/19 14:27 Dose: 100 mls/hr Documented by: [id number] Metoprolol Tartrate (Lopressor) 12.5 mg PO BID [facility] Stop: 12/04/19 08:59 Last Admin: 11/06/19 08:23 Dose: 12.5 mg Documented by: [id number] Admin: 11/05/19 20:54 Dose: Not Given Documented by: [id number] Admin: 11/05/19 08:13 Dose: 12.5 mg Documented by: [id number] Admin: 11/04/19 20:17 Dose: 12.5 mg Documented by: [id number] Admin: 11/04/19 08:59 Dose: 12.5 mg Documented by: [id number] Perflutren Lipid Microsphere (Definity) 2 ml IV ONCE ONE Stop: 11/03/19 14:13 Last Admin: 11/03/19 14:13 Dose: 2 ml Documented by: [id number] Medical Decision Making Differential Diagnosis Differential diagnoses includes but is not limited to toxic, metabolic, infectious, traumatic, cardiac, neurologic, hematologic, psychiatric and inflammatory etiologies. Medical Records Attestation: I reviewed the patient's medical records. Home Medications Current Medication List: was personally reviewed by me Laboratory Data Attestation: I reviewed the patient's lab results. Result diagrams: 11/03/19 08:58 11/03/19 08:58 Lab Results 11/03/19 11/03/19 11/03/19 Range/Units 08:58 08:58 08:58 WBC 6.03 (4.8-10.8) K/uL RBC 4.34 (4.2-5.4) M/uL Hgb 12.9 (12.0-16.0) g/dL Hct 38.8 (37-47) % MCV 89.4 (80-100) fL MCH 29.7 (25-34) pg MCHC 33.2 (32-36) g/dL RDW Std Deviation 44.9 (36.4-46.3) fL RDW Coeff of Ikrstie 13.6 (11.5-14.5) % Plt Count 197 (130-400) K/uL MPV 10.2 (7.4-10.4) fL Immature Gran % (Auto) 0.2 % Neut % (Auto) 52.7 % Lymph % (Auto) 35.3 % [place] % (Auto) 6.8 % Eos % (Auto) 4.8 % Baso % (Auto) 0.2 % Immature Gran # (Auto) 0.01 (0.00-0.02) K/uL Neut # (Auto) 3.18 (1.4-6.5) K/uL Lymph # (Auto) 2.13 (1.2-3.4) K/uL [place] # (Auto) 0.41 (0.11-0.59) K/uL Eos # (Auto) 0.29 (0-0.5) K/uL Baso # (Auto) 0.01 (0-0.2) K/uL Sodium 142 (136-145) mmol/L Potassium 3.5 (3.5-5.1) mmol/L Chloride 111 H (98-107) mmol/L Carbon Dioxide 24 (21-32) mmol/L Anion Gap 7.0 (3-11) BUN 39 H (7-18) mg/dl Creatinine 1.35 H (0.6-1.2) mg/dl Est Cr Clr Drug Dosing 22.2 ml/min Est GFR ( Amer) 40.2 Est GFR (Non-Af Amer) 34.7 BUN/Creatinine Ratio 28.5 H (10-20) Glucose 107 H (70-99) mg/dl Lactate 1.8 (0.4-2.0) mmol/L Calcium 9.2 (8.5-10.1) mg/dl Magnesium 2.3 (1.8-2.4) mg/dl Total Bilirubin 0.5 (0.2-1) mg/dl AST 20 (15-37) U/L ALT 16 (12-78) U/L Alkaline Phosphatase 54 (45-117) U/L Troponin I < 0.015 (0-0.045) ng/ml NT-Pro-B Natriuret Pep 392 (0-1800) pg/ml Total Protein 6.9 (6.4-8.2) gm/dl Albumin 3.7 (3.4-5.0) gm/dl Globulin 3.2 (2.5-4.0) gm/dl Albumin/Globulin Ratio 1.2 (0.9-2) Lipase 73 (73-393) U/L TSH 3.100 (0.300-4.500) uIu/ml Urine Color Urine Appearance (Clear) Urine pH (4.5-7.5) Ur Specific [place] (1.000-1.030) Urine Protein (Negative) Urine Glucose (UA) (Negative) Urine Ketones (Negative) Urine Blood (Negative) Urine Nitrite (Negative) Urine Bilirubin (Negative) Urine Urobilinogen (Negative) Ur Leukocyte Esterase (Negative) Urine WBC (Auto) (0-5) /hpf Urine RBC (Auto) (0-4) /hpf U Hyaline Cast (Auto) (0-5) /lpf U Epithel Cells (Auto) (0-5) /lpf Urine Bacteria (Auto) (Negative) 11/03/19 Range/Units 09:09 WBC (4.8-10.8) K/uL RBC (4.2-5.4) M/uL Hgb (12.0-16.0) g/dL Hct (37-47) % MCV (80-100) fL MCH (25-34) pg MCHC (32-36) g/dL RDW Std Deviation (36.4-46.3) fL RDW Coeff of Kirstie (11.5-14.5) % Plt Count (130-400) K/uL MPV (7.4-10.4) fL Immature Gran % (Auto) % Neut % (Auto) % Lymph % (Auto) % [place] % (Auto) % Eos % (Auto) % Baso % (Auto) % Immature Gran # (Auto) (0.00-0.02) K/uL Neut # (Auto) (1.4-6.5) K/uL Lymph # (Auto) (1.2-3.4) K/uL [place] # (Auto) (0.11-0.59) K/uL Eos # (Auto) (0-0.5) K/uL Baso # (Auto) (0-0.2) K/uL Sodium (136-145) mmol/L Potassium (3.5-5.1) mmol/L Chloride (98-107) mmol/L Carbon Dioxide (21-32) mmol/L Anion Gap (3-11) BUN (7-18) mg/dl Creatinine (0.6-1.2) mg/dl Est Cr Clr Drug Dosing ml/min Est GFR ( Amer) Est GFR (Non-Af Amer) BUN/Creatinine Ratio (10-20) Glucose (70-99) mg/dl Lactate (0.4-2.0) mmol/L Calcium (8.5-10.1) mg/dl Magnesium (1.8-2.4) mg/dl Total Bilirubin (0.2-1) mg/dl AST (15-37) U/L ALT (12-78) U/L Alkaline Phosphatase (45-117) U/L Troponin I (0-0.045) ng/ml NT-Pro-B Natriuret Pep (0-1800) pg/ml Total Protein (6.4-8.2) gm/dl Albumin (3.4-5.0) gm/dl Globulin (2.5-4.0) gm/dl Albumin/Globulin Ratio (0.9-2) Lipase (73-393) U/L TSH (0.300-4.500) uIu/ml Urine Color Yellow Urine Appearance Clear (Clear) Urine pH 6.5 (4.5-7.5) Ur Specific [place] 1.009 (1.000-1.030) Urine Protein Negative (Negative) Urine Glucose (UA) Negative (Negative) Urine Ketones Negative (Negative) Urine Blood Trace H (Negative) Urine Nitrite Negative (Negative) Urine Bilirubin Negative (Negative) Urine Urobilinogen Negative (Negative) Ur Leukocyte Esterase Trace H (Negative) Urine WBC (Auto) 10-30 H (0-5) /hpf Urine RBC (Auto) 5-10 H (0-4) /hpf U Hyaline Cast (Auto) 0 (0-5) /lpf U Epithel Cells (Auto) 10-20 H (0-5) /lpf Urine Bacteria (Auto) 2+ H (Negative) Imaging Data Radiologist's Impression: Radiology results as stated below per my review and the radiologist's interpretation: CHEST AND ABDOMEN 2 VIEWS HISTORY: confusion COMPARISON: Chest 10/31/2019. FINDINGS: No pneumothorax. No pleural effusions. There are low lung volumes. The heart is borderline enlarged. Mitral annulus calcifications are noted. Mild interstitial thickening which is likely chronic. Cervical spinal fusion hard brambila. Levoscoliosis of the lumbar spine. Calcifications in the deep pelvis likely represent phleboliths. Moderate stool within the colon. No pneumoperitoneum. No pneumatosis. No dilated loops of bowel to suggest an obstruction. IMPRESSION: 1. Mild interstitial thickening within the lungs which is likely chronic. 2. No evidence for bowel obstruction. 3. Moderate stool within the colon. Electronically signed by: Mitchell Celis M.D. 11/03/2019 10:[address] head/brain wo con CT DOSE: 614.27 mGy.cm HISTORY: Mental status change confusion TECHNIQUE: Multiaxial CT images of the head were performed without the use of intravenous contrast. A dose lowering technique was utilized adhering to the principles of ALARA. Comparison: 06/25/2019 Findings: The paranasal sinuses and mastoid air cells are clear. The calvarium and skull base are intact. The ventricles and sulci are within normal limits. There is no mass, hematoma, midline shift, or acute infarct. Age-related changes of atrophy and chronic small vessel change. Impression: No acute intracranial abnormality. Age-related atrophy and chronic small vessel change. The above report was generated using voice recognition software. It may contain grammatical, syntax or spelling errors. Electronically signed by: Christopher Hutchinson M.D. 11/03/2019 9:26 AM ECG Data Attestation: I personally reviewed and interpreted this ECG as follows: Indication: + altered mental status Rate (beats per minute): 50 Rhythm: + sinus bradycardia ECG Intervals/blocks: + First degree AV block and + Left bundle branch block ECG Terral: + Left axis deviation ECG ST segments: no ST elevation ECG Findings: no PACs and no PVCs Comparison ECG Date: from (06/25/19) Change: the following changes noted (PVCs are no longer present) Blood Pressure Blood Pressure Findings: Elevated blood pressure Blood Pressure Disposition: Referred to patients primary care provider MDM Narrative Pt here well appearing and without specific complaints. VS stable. Pt frequently with severe bradycardia that would resolve, however given frequency, I feel this may be contributing to symptoms. UA unremarkable and prior UTI seems to have cleared. No other evidence of infectious etiology. Pt with normal and nonfocal neuro exam. Discussed with her and family all results and need for additional evaluation. She verbalized understanding and was in agreement with the plan. Impression & Plan Altered mental status, Symptomatic bradycardia Discharge Plan Visit Data *Final* Discharge Date/Time: 11/03/19 13:15 Chief Complaint: Confusion Stated Complaint: Confusion, Recent UTI ED Provider: Pati Delatorre Discharge Problem: Altered mental status, Symptomatic bradycardia Patient Disposition: Admitted As Inpatient Discharge Instructions Interventions: ED Discharge Assessment Last Done: 11/03/19 13:15 Discharge Problem: Altered mental status Qualifiers: Altered mental status type: unspecified Qualified Code(s): R41.82 - Altered mental status, unspecified The scribe's documentation has been prepared under my direction and personally reviewed by me in its entirety. I confirm that the note above accurately reflects all work, treatment, procedures, and medical decision making performed by me.
--- NOTE | 2019-11-06 16:13 | Discharge Summary ---
Date of Service November 06, 2019 Admission HPI Per Admitting Provider 89-year-old female who was recently diagnosed with UTI about 3 weeks ago. Family noticed that she was confused, fatigued, they took her to the PCP about 3 weeks ago, she was found to have a urinary tract infection, she was giving a course of Cipro, urine culture at that time grew pansensitive Citrobacter braakii. Patient lives alone and just finished the course of the Cipro she took. She called her daughter this morning and stated she is not feeling well. Patient said that she had chest tightness across both shoulders associated with shortness of breath and headache. Daughter and grandson came and noticed that she does have some dizziness while they were trying to move her from bed to chair. At that time they called 911 and they were suspicious about possible stroke. They denies any focal weakness or facial droop or slurred speech. She was brought to the hospital CT head was negative but it was noticed that her heart rate has been low, during ED physician evaluation it went all the way down to 36bpm Her chest tightness or headache everything in the ED work is resolved except the generalized fatigue. Family stated that about 3 weeks ago she was started on Lasix because she had lower extremity swelling. Currently patient denies any chest pain or shortness of breath, denies any headache and appears to be comfortable in bed. Admission Exam (Per Admitting) Constitutional Physical examination General frail elderly female appears to be in moderate acute distress HEENT: Atraumatic , normocephalic /no jaundice /no pallor /anicteric /no dry mucous membrane /normal external ear inspection Neck: Supple /no swelling /central trach Heart: S1/S2 severe bradycardia/regular rate and rhythm/no gallop /no rub /2/6 murmur Lungs: Clear to auscultation bilaterally/normal chest with expansion/no rhonchi/no rales/no wheezing/no use of accessory muscles of respiration Abdomen: Soft/nontender/no guarding/no rebound/no organomegaly/no pulsatile mass Musculoskeletal: No swelling/no edema/no tenderness/normal range of motion Neuro exam: Awake alert oriented 3/cranial nerves II through XII appear to be intact/sensation intact/moves all extremities/no abnormal movements Psychiatric evaluation: No depressed mood/normal affect Skin: No rash on exposed skin area/no erythema Extremity: Normal pulse/no pitting edema/no clubbing or cyanosis Endocrine/lymphatic: No obvious lymphadenopathy /no lymphedema Discharge Data Consultations 11/03/19 11:46 ED Decision to Admit Stat 11/03/19 12:37 Consult Cardiology Routine Hospital Course (1) Symptomatic bradycardia: Tiffanie is an 89yo F with a PMHx of depression, OA, dementia, hypothyroidism, CAD, and HLD who presented with chest tightness/dizziness and who has been admitted/managed for symptomatic bradycardia. Symptomatic bradycardia On admission patient had shortness of breath and dizziness. Her EKG showed a left bundle branch block consistent with prior EKGs and moderate LVH. No A. fib, a flutter, or heart block was appreciated. She was noted to be bradycardic to the 40s. Cardiology was consulted, and her home metoprolol 50 mg twice daily was decreased to 12.5 mg p.o. twice daily twice daily. She had improvement with her symptoms, and maintained a heart rate in the 60s to 70s at this dose. Cardiology felt that there was no indication for pacemaker at this time, and she will have follow-up with cardiology as an outpatient. If she continues to be symptomatic may consider converting her beta-herlinda to a low-dose of carvedilol. Her bradycardia is likely due to early sick sinus syndrome, and will require cardiology follow-up as noted. Concern for UTI On admission there was initial concern that her lightheadedness, dizziness, and symptoms may be due to uroseptic encephalopathy however UC showed low counts of lactobacillus which was not consistent with UTI. She received empiric Vanco Zosyn narrowed to Rocephin which was discontinued based on UC results. She did not experience urinary symptoms during admission, and her altered mental status improved following beta-herlinda reduction. Altered mental status Patient initially confused, lightheaded with concern for UTI as noted above. Symptoms improved following beta-herlinda reduction, was felt that her acute mental status change was likely due to metabolic encephalopathy related to symptomatic bradycardia. Resolved at time of discharge. Hyperlipidemia CASE AIDE atorvastatin and fenofibrate were continued during admission. Hypothyroidism TSH on admission was 3.1, within normal limits. CASE AIDE dosing of levothyroxine 25 mcg daily was continued during admission. She was clinically euthyroid during admission. CAD/hypertension CASE AIDE atorvastatin, amlodipine, aspirin, and valsartan were continued during admission. Her beta-herlinda was decreased as above. Initially following beta- herlinda decrease she was mildly hypertensive, but decreased to 125/59 on recheck. Addition of adjunct antihypertensive was deferred, may consider addition of a low-dose thiazide if her pressures remain high. She will need blood pressure follow-up and management as outpatient. DVT prophylaxis DVT prophylaxis was maintained with heparin subcu every 12 hours Ambulatory dysfunction She was seen by PT/OT who recommended subacute rehab for ambulatory dysfunction. She was accepted for rehab at [facility], and was discharged to subacute rehab. (2) DVT prophylaxis: (3) Depression: (4) Discharge planning issues: (5) Sinus bradycardia: (6) Altered mental status: (7) Hyperlipidemia: (8) Hypothyroidism: (9) CAD (coronary artery disease): (10) HTN (hypertension): Supervising Physician Co-Signing Physician Notes Resident Physician Supervision Note: I independently interviewed and examined the patient and verified the robert history and physical, reviewed labs and image studies, discussed the case with the resident Dr. Renteria and agree with the findings and care plan. General - alert, ox3 heart - regular lungs - cta, b/l, no r/r/w abdomen - soft, nt/nd. doing well with decreased b herlinda dose. MS and HR improved. d/c home. Resident Activity Tracking Resident Involvement: Resident Care Provided Care Provided: Adult Hospital Medicine
[2019-11-06] MEDS ORDERED: METOPROLOL TARTRATE 25 MG TAB PO SCH (21:00)
== END 2019-11-06 17:30 | DRG 308 ==
LOC: ED 08:23 → SUATTDRO 12:36 → 2E 12:36